=== PATIENT | male | born 1945 | race Caucasian/White ===

== ENCOUNTER 2020-07-14 05:29 | Outpatient (RCR) | payer MEDICARE ==
[~2020-07-14] VITALS: Ht 167.7 cm; Wt 86.4 kg
[~2020-07-14 05:29] MED LIST: ASCO-262 PO; ATOR40TA70 PO; CETI10TA49 PO; CHOL200014 PO; GLIP10TA13 PO; LOSA100T57 PO; METF-399 PO; MULT-1056 PO; ZINC50TA58 PO
[2020-07-16] MEDS ORDERED: ACHD5005 PO (17:01)
[2020-07-16] MEDS ORDERED: CEPH500C PO (17:01)
== END 2020-07-14 16:09 | disposition home or self-care (01) ==
LOC: PREOP 05:29
PROVIDERS: ATTEND Podiatrist Foot & Ankle Surgery
DX: Z01.812 Encounter for preprocedural laboratory examination (principal); M86.172 Other acute osteomyelitis, left ankle and foot; Z20.822 Contact with and (suspected) exposure to COVID-19
CPT/HCPCS: 87635

== ENCOUNTER 2020-07-16 12:50 | Day surgery (SDC) | payer MEDICARE ==
[~2020-07-16] VITALS: Ht 167.7 cm; Wt 86.4 kg
[2020-07-16] VITALS (7 sets, daily range): BP systolic 103–161; BP diastolic 48–84
[2020-07-16] MEDS ORDERED: PROPOFOL INJECTION 50 ML IV ONE ×2 (13:22→16:22)
[2020-07-16] MEDS ORDERED: fentaNYL INJ 100 MCG/2 ML AMP ONE (13:22)
[2020-07-16] MEDS ORDERED: BUPIVACAINE 0.5% 30 ML (SENSORCAINE) VIAL ONE ×2 (13:47→13:48)
[2020-07-16] MEDS ORDERED: LIDOCAINE 1% INJ 20 ML 20 ML VIAL ONE (13:47)
[2020-07-16] MEDS ORDERED: MIDAZOLAM 2 MG/2 ML (VERSED) VIAL ONE (14:07)
[2020-07-16] MEDS ORDERED: VANCOMYCIN INJECTION 1,000 MG in NS (IVPB) 250 ML IV ONE (15:15)
[2020-07-16] MEDS ORDERED: LACTATED RINGERS 1,000 ML IV PRN (15:15)
[2020-07-16] MEDS ORDERED: ONDANSETRON 4 MG/2 ML (SDV) Z0FRAN IVP PRN (15:30)
[2020-07-16] MEDS ORDERED: fentaNYL INJ 100 MCG/2 ML AMP IVP ONE (15:30)
[2020-07-16] MEDS ORDERED: morphine INJ 10 MG/ML 1ML (SYR OR VIAL) IVP ONE (15:30)
[2020-07-16] MEDS ORDERED: MEPERIDINE (DEMEROL) INJ 50 MG/ML IVP ONE (15:30)
[2020-07-16] MEDS ORDERED: ONDANSETRON 4 MG/2 ML (SDV) Z0FRAN ONE (16:22)
--- NOTE | 2020-07-16 16:54 | Progress Note-Pre Operative ---
Pre-Operative Progress Note H&P Reviewed The H&P was reviewed, patient examined and no changes noted. Date Seen by Provider: Jul 16, 2020 Time Seen by Provider: 15:30 Date H&P Reviewed: Jul 16, 2020 Time H&P Reviewed: 15:31 Pre-Operative Diagnosis: Osteomyelitis left hallux CLARENCE GARIBAY DPM Jul 16, 2020 16:54
--- NOTE | 2020-07-16 16:57 | Progress Note-Post Operative ---
Post-Operative Progess Note Surgeon (s)/Desizing Machine Offbearer (s) Surgeon CLARENCE GARIBAY DPM Desizing Machine Offbearer: none Pre-Operative Diagnosis Osteomyelitis left hallux Post-Operative Diagnosis Same Procedure & Operative Findings Date of Procedure 07/16/20 Procedure Performed/Findings Amputation of the left hallux Anesthesia Type MAC Estimated Blood Loss Estimated blood loss (mL): Minimal Specimens/Packing Specimens Removed Left Hallux CLARENCE GARIBAY DPM Jul 16, 2020 16:57
[2020-07-16] MEDS ORDERED: LACTATED RINGERS 1,000 ML IV SCH (17:00)
[2020-07-16] MEDS ORDERED: HYDROcodone/APAP 5 MG/325 MG (LORTAB) TAB PO PRN (17:00)
[2020-07-16] MEDS ORDERED: ACHD5005 PO (17:01)
[2020-07-16] MEDS ORDERED: CEPH500C PO (17:01)
--- NOTE | 2020-07-16 18:19 | Diagnostic Imaging Report ---
Indication: Postop. Findings: There has been resection at the mid shaft of the proximal phalanx of the great toe, no retained opaque foreign body at the level of surgery. There is a midfoot disorganization and flatfoot deformity, presumed Charcot foot. The 2nd through 5th toes are held in flexion, their evaluation limited. 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 Dictated by: Dictated on workstation # [id number]
--- NOTE | 2020-07-16 21:14 | OPERATIVE REPORT ---
DATE OF SERVICE: 07/16/2020 SURGEON: Deepa Garibay DPM. PREOPERATIVE DIAGNOSIS: Osteomyelitis, left hallux. POSTOPERATIVE DIAGNOSIS: Osteomyelitis, left hallux. PROCEDURE: Amputation of left hallux. WOUND CLASS: Contaminated. ANESTHESIA: Monitored anesthesia care. HEMOSTASIS: Pneumatic ankle tourniquet at 250 mmHg. INDICATIONS: This is a 74-year-old male presents with a chronic wound to the left great toe. The patient had an inflammatory reaction and a new ulceration developed on the dorsal aspect of the foot. X-rays were taken, which indicated a significant bone destruction to the interphalangeal joint area of the left hallux. The wound did probe down to bone with the osteolysis of bone. It was clear that this was likely to be bone infection and that surgical excision would be appropriate in the sense that since he has a contracted toe that was unlikely to be resolved with conservative treatment, removing the distal toe would remove the ulceration as well as the infection reducing his risk of continued problems with the left great toe. The patient is willing to proceed with a course of action after risks and complications were discussed at length. DESCRIPTION OF PROCEDURE: The patient was brought back to the operating table, placed in secure supine position. Anesthesia was achieved utilizing 10 mL of 0.5% Marcaine injected in a Plasencia block to the left foot. The left foot had an ankle tourniquet placed over several layers of padding. The left foot was then prepped and draped in normal sterile manner. The left foot was then elevated, allowed to exsanguinate after which the tourniquet was inflated to 250 mmHg. Attention was then directed to the left great toe where 2 incisions were made. The first began at the distal diaphysis of the proximal phalanx and extended dorsally over the interphalangeal joint area and ended at the lateral aspect of the distal diaphysis. The next incision, created a plantar flap where it started at the same starting position extending distally, curving underneath the distal phalanx and curving back to the lateral aspect of the left hallux. The incision was deepened down to bone, after which the mid diaphysis of the proximal phalanx was cut with a power sagittal saw. Good integrity of bone was identified at this time. The distal portion of the left hallux was sent for gross and microscopic evaluation after a small sampling of the bone to the interphalangeal joint area sent for culture and sensitivities. The remainder of the left hallux had no further pathology. The extensor and flexor tendons were identified and cut as proximally as possible. The tourniquet was released, and active bleeders were cauterized. Utilizing 1000 mL power irrigation of normal saline was performed. The wound was then reapproximated with the plantar flap being sutured to the dorsal aspect of the remaining left hallux without any tension. The wound had a swab culture performed prior to closure. Closure was performed with 4-0 Prolene in a simple interrupted type stitch. Postoperative dressing consisted of Betadine soaked Adaptic, sterile 4 x 4, sterile Kerlix all secured with a Coban wrap. The patient tolerated the anesthesia and procedure well, was transported from the operating room to the recovery room with vital signs stable and vascular status intact to the remaining digits of the left foot. The patient is to follow up in my office in 10 days' period of time or sooner if necessary. He was given a prescription for Keflex and also for hydrocodone. Job ID: [id number] DocumentID: [id number] Dictated Date: 07/16/2020 17:07:35 Automobile Mechanic Helper Date: 07/16/2020 21:12:34 Dictated By: DEEPA GARIBAY DPM
== END 2020-07-16 18:30 | disposition home or self-care (01) ==
LOC: SDC 12:50
PROVIDERS: ATTEND Podiatrist Foot & Ankle Surgery
DX: E11.69 Type 2 diabetes mellitus with other specified complication (principal); M86.672 Other chronic osteomyelitis, left ankle and foot; I10 Essential (primary) hypertension; E11.43 Type 2 diabetes mellitus with diabetic autonomic (poly)neuropathy; E78.2 Mixed hyperlipidemia; Z79.84 Long term (current) use of oral hypoglycemic drugs; Z79.899 Other long term (current) drug therapy; Z91.048 Other nonmedicinal substance allergy status
CPT/HCPCS: 73620; 82962; 87070; 87075; 87077; 87081; 87101; 87205

== ENCOUNTER 2021-05-03 12:39 | Outpatient (RCR) | payer MEDICARE ==
[~2021-05-03 12:39] MED LIST changes: +ACHD5005 PO; +CEPH500C PO
[2021-05-11] MEDS ORDERED: IPRA3AMP31 IH (20:47)
[2021-05-11] MEDS ORDERED: COMP1EAC88 MC (20:47)
[2021-05-11] MEDS ORDERED: DEXA6TAB6 PO (20:47)
[2021-05-11] MEDS ORDERED: BENZ100C18 PO (20:47)
[2021-05-11] MEDS ORDERED: ONDA4TAB11 PO (20:47)
[2021-05-11] MEDS ORDERED: oxygen (20:47)
== END 2021-05-16 | disposition home or self-care (01) ==
LOC: ONC 12:39
PROVIDERS: ATTEND Internal Medicine Hematology & Oncology
DX: D72.820 Lymphocytosis (symptomatic) (principal)
CPT/HCPCS: 88184; 88185; G0463; 99214

== ENCOUNTER 2021-05-11 18:00 | Emergency (ER) | payer MEDICARE ==
[~2021-05-11] VITALS: Ht 162 cm; Wt 85.0 kg
--- NOTE | 2021-05-11 18:35 | ED Respiratory ---
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 Reports cough when lying or reclining. Denies covid vaccine and reports he is a smoker. Source: patient Exam Limitations: no limitations History of Present Illness Date Seen by Provider: May 11, 2021 Time Seen by Provider: 18:01 Initial Comments Patient to the ER from home by EMS with chief complaint of shortness of air fever and cough. Fevers been going on for 2 days. Cough and shortness of air is progressively gotten worse over the past week or so. He was recently diagnosed with CLL. He follows with [facility] or primary care. He has not been vaccinated for COVID-19 or influenza. He wishes to be a DNI, DO NOT INTUBATE but wants to be full code. He has a history of hypertension, kry-tzkcslt-oebcdqwai diabetes. He rolls his own cigarettes and smokes about 1/4 pack of cigarettes a day. He denies any lung disorders, reliance on supplemental oxygen or breathing treatments. He received a DuoNeb en route by EMS and thought maybe it helped a little bit. His oxygen saturations were 85% on room air when they arrived. EMS put him on a DuoNeb and brought his oxygen sats up into the upper 90s. Allergies and Home Medications Allergies Coded Allergies: adhesive tape (Verified Allergy, Unknown, 07/13/20) Patient Home Medication List Home Medication List Reviewed: Yes Ascorbate Calcium (Vitamin C) 500 Mg Tablet, 500 MG PO BID, (Reported) Entered as Reported by: RUBY ORDAZ on 07/13/20 1142 Atorvastatin Calcium (Atorvastatin Calcium) 40 Mg Tablet, 40 MG PO DAILY, (Reported) Entered as Reported by: RUBY ORDAZ on 07/13/20 1142 Benzonatate (Tessalon Perles) 100 Mg Capsule, 100 MG PO Q6H PRN for COUGH Prescribed by: SPIKE BONILLA on 05/11/212046 Cephalexin (Cephalexin) 500 Mg Capsule, 1 CAP PO TID Prescribed by: CLARENCE GARIBAY on 07/16/20 170 Cetirizine HCl (Zyrtec) 10 Mg Tablet, 10 MG PO DAILY, (Reported) Entered as Reported by: RUBY ORDAZ on 07/13/20 1142 Cholecalciferol (Vitamin D3) (Vitamin D3) 50 Mcg Tablet, 50 MCG PO DAILY, (Reported) Entered as Reported by: RUBY ORDAZ on 07/13/20 1142 Compressor, For Nebulizer (Pulmo-Aide) 1 Each Each, EACH MC Q4H, (DME) Prescribed by: SPIKE BONILLA on 05/11/212046 Dexamethasone (Decadron) 6 Mg Tablet, 6 MG PO DAILY Prescribed by: SPIKE BONILLA on 05/11/212046 Glipizide (Glipizide) 10 Mg Tablet, 10 MG PO DAILY, (Reported) Entered as Reported by: RUBY ORDAZ on 07/13/20 1142 Hydrocodone/Acetaminophen (Hydrocodone-Acetamin 5-325 mg) 1 Each Tablet, 1 TAB PO Q4H PRN for PAIN-MODERATE (5-7) Prescribed by: CLARENCE GARIBAY on 07/16/20 170 Ipratropium/Albuterol Sulfate (Iprat-Albut 0.5-3(2.5) mg/3 ml) 3 Ml Ampul.neb, 3 ML IH Q4H PRN for SHORTNESS OF BREATH Prescribed by: SPIKE BONILLA on 05/11/212046 Losartan Potassium (Losartan Potassium) 100 Mg Tablet, 100 MG PO DAILY, (Reported) Entered as Reported by: RUBY ORDAZ on 07/13/20 114 Metformin HCl (Metformin HCl) 1,000 Mg Tablet, 1,000 MG PO BID, (Reported) Entered as Reported by: RUBY ORDAZ on 07/13/20 1142 Multivit-Min/FA/Lycopen/Lutein (Men 50 Plus Multivitamin Tab) 1 Each Tablet, 1 EACH PO DAILY, (Reported) Entered as Reported by: RUBY ORDAZ on 07/13/20 1142 Ondansetron (Ondansetron Odt) 4 Mg Tab.rapdis, 4-8 MG PO Q6H PRN for NAUSEA/VOMITING Prescribed by: SPIKE BONILLA on 05/11/212046 Zinc (Zinc) 50 Mg Tablet, 50 MG PO DAILY, (Reported) Entered as Reported by: RUBY ORDAZ on 07/13/20 1142 [oxygen] , 2-6 L NA DAILY PRN PRN for SHORTNESS OF BREATH Prescribed by: SPIKE BONILLA on 05/11/212046 Review of Systems Review of Systems Constitutional: chills; No diaphoresis; fever, malaise EENTM: No ear discharge, No ear pain Respiratory: cough, orthopnea, phlegm, short of breath, wheezing Cardiovascular: No chest pain, No palpitations Gastrointestinal: No abdominal pain, No nausea, No vomiting Genitourinary: No discharge, No dysuria Musculoskeletal: No back pain; joint pain (Chronic foot pain followed by Dr. Garibay) All Other Systems Reviewed Negative Unless Noted: Yes Past Kkoxucp-Wvwfbd-Czjbvu Hx Patient Social History Tobacco Use?: Yes Tobacco type used: Cigarettes Smoking Status: Current Someday Smoker Use of E-Cig and/or Vaping dev: No Seasonal Allergies Seasonal Allergies: Yes Past Medical History Surgeries: Yes (right foot sx x2) Appendectomy, Tonsillectomy Respiratory: No Currently Using CPAP: No Currently Using BIPAP: No Cardiac: Yes High Cholesterol, Hypertension Neurological: No Genitourinary: No Gastrointestinal: No Musculoskeletal: Yes (osteomyelitis) Endocrine: Yes Diabetes, Non-Insulin dep HEENT: No Cancer: No (dentures-upper) Psychosocial: No Integumentary: Yes Blood Disorders: No Physical Exam Vital Signs - First Documented 05/11/21 05/11/21 18:07 18:39 Temp 38.2 Pulse 112 Resp 30 B/P (MAP) 146/116 (126) Pulse Ox 100 O2 Delivery Nasal Cannula O2 Flow Rate 3.00 Capillary Refill : Less Than 3 Seconds Height: '" Weight: lbs. oz. kg; 32.00 BMI Method: General Appearance: WD/WN, moderate distress Eyes: Bilateral Eye Normal Inspection, Bilateral Eye PERRL, Bilateral Eye EOMI HEENT: PERRL/EOMI, normal ENT inspection, TMs normal, pharynx normal Neck: non-tender, full range of motion, supple, normal inspection Respiratory: lungs clear, no accessory muscle use, respiratory distress (Mild to moderate with oxygen saturations in the upper 90s on 4 L by nasal cannula, increased respiratory rate 25 to 30 breaths/min. No retractions.), decreased breath sounds Cardiovascular: normal peripheral pulses, regular rate, rhythm Gastrointestinal: normal bowel sounds, non tender, soft Extremities: non-tender, normal capillary refill Neurologic/Psychiatric: alert, normal mood/affect, oriented x 3 Skin: normal color, warm/dry Focused Exam Lactate Level 05/11/21 18:25: Lactic Acid Level 2.74*H 05/11/21 20:34: Lactic Acid Level 1.81 Lactic Acid Level Laboratory Tests Test 05/11/21 18:25 05/11/21 20:34 Lactic Acid Level 2.74 MMOL/L (0.50-2.00) *H 1.81 MMOL/L (0.50-2.00) Progress/Results/Core Measures Suspected Sepsis SIRS Temperature: Pulse: 112 Respiratory Rate: 30 Laboratory Tests 05/11/21 18:25: White Blood Count 12.0H Blood Pressure 146 /116 Mean: 126 05/11/21 18:25: Lactic Acid Level 2.74*H 05/11/21 20:34: Lactic Acid Level 1.81 Laboratory Tests 05/11/21 18:25: Creatinine 1.72H, INR Comment 1.3, Platelet Count 88L, Total Bilirubin 1.6H Results/Orders Lab Results Laboratory Tests Test 05/11/21 18:15 05/11/21 18:25 05/11/21 18:30 05/11/21 20:00 Range/Units Influenza Type A (RT-PCR) Not Detected Not Detecte Influenza Type B (RT-PCR) Not Detected Not Detecte SARS-CoV-2 RNA (RT-PCR) Detected H Not Detecte White Blood Count 12.0 H 4.3-11.0 10^3/uL Red Blood Count 3.93 L 4.30-5.52 10^6/uL Hemoglobin 13.2 L 13.3-17.7 g/dL Hematocrit 37 L 40-54 % Mean Corpuscular Volume 94 80-99 fL Mean Corpuscular Hemoglobin 34 25-34 pg Mean Corpuscular Hemoglobin Concent 36 32-36 g/dL Red Cell Distribution Width 12.2 10.0-14.5 % Platelet Count 88 L 130-400 10^3/uL Mean Platelet Volume 11.5 9.0-12.2 fL Immature Granulocyte % (Auto) 0 % Neutrophils (%) (Auto) 16 L 42-75 % Lymphocytes (%) (Auto) 81 H 12-44 % Monocytes (%) (Auto) 3 0-12 % Eosinophils (%) (Auto) 0 0-10 % Basophils (%) (Auto) 0 0-10 % Neutrophils # (Auto) 1.9 1.8-7.8 10^3/uL Lymphocytes # (Auto) 9.7 H 1.0-4.0 10^3/uL Monocytes # (Auto) 0.3 0.0-1.0 10^3/uL Eosinophils # (Auto) 0.0 0.0-0.3 10^3/uL Basophils # (Auto) 0.0 0.0-0.1 10^3/uL Immature Granulocyte # (Auto) 0.0 0.0-0.1 10^3/uL Neutrophils % (Manual) 14 % Lymphocytes % (Manual) 84 % Monocytes % (Manual) 2 % Percent Immature Platelet Fraction 5.1 0.0-7.6 % Blood Morphology Comment NORMAL Prothrombin Time 16.3 H 12.2-14.7 SEC INR Comment 1.3 0.8-1.4 Activated Partial Thromboplast Time 35 24-35 SEC D-Dimer 1.31 H 0.00-0.49 UG/ML Sodium Level 130 L 135-145 MMOL/L Potassium Level 4.3 3.6-5.0 MMOL/L Chloride Level 95 L 98-107 MMOL/L Carbon Dioxide Level 17 L 21-32 MMOL/L Anion Gap 18 H 5-14 MMOL/L Blood Urea Nitrogen 33 H 7-18 MG/DL Creatinine 1.72 H 0.60-1.30 MG/DL Estimat Glomerular Filtration Rate 41 BUN/Creatinine Ratio 19 Glucose Level 283 H 70-105 MG/DL Lactic Acid Level 2.74 *H 0.50-2.00 MMOL/L Calcium Level 8.5 8.5-10.1 MG/DL Corrected Calcium 8.7 8.5-10.1 MG/DL Magnesium Level 2.1 1.6-2.4 MG/DL Total Bilirubin 1.6 H 0.1-1.0 MG/DL Aspartate Amino Transf (AST/SGOT) 45 H 5-34 U/L Alanine Aminotransferase (ALT/SGPT) 36 0-55 U/L Alkaline Phosphatase 57 40-136 U/L Troponin I 0.030 H <0.028 NG/ML C-Reactive Protein High Sensitivity 34.44 H 0.00-0.50 MG/DL B-Type Natriuretic Peptide 369.6 H <100.0 PG/ML Total Protein 7.0 6.4-8.2 GM/DL Albumin 3.7 3.2-4.5 GM/DL Procalcitonin 6.31 H <0.10 NG/ML Blood Gas Puncture Site R WRIST Blood Gas Patient Temperature 100.7 Arterial Blood pH 7.44 H 7.37-7.43 Arterial Blood Partial Pressure CO2 25 L 35-45 MMHG Arterial Blood Partial Pressure O2 93 79-93 MMHG Arterial Blood HCO3 17 *L 23-27 MMOL/L Arterial Blood Total CO2 17.4 L 21.0-31.0 MMOL/L Arterial Blood Oxygen Saturation 98 94-100 % Arterial Blood Base Excess -6.5 L -2.5-2.5 MMOL/L Virgilio Test YES-POS Blood Gas Ventilator Setting NO Blood Gas Inspired Oxygen 4 L Urine Color BROWN H Urine Clarity SL CLOUDY Urine pH 5.5 5-9 Urine Specific [place] >=1.030 1.016-1.022 Urine Protein 2+ H NEGATIVE Urine Glucose (UA) NEGATIVE NEGATIVE Urine Ketones 1+ H NEGATIVE Urine Nitrite NEGATIVE NEGATIVE Urine Bilirubin 2+ H NEGATIVE Urine Urobilinogen 0.2 < = 1.0 MG/DL Urine Leukocyte Esterase NEGATIVE NEGATIVE Urine RBC (Auto) 2+ H NEGATIVE Urine RBC 0-2 /HPF Urine WBC 2-5 /HPF Urine Crystals PRESENT H /LPF Urine Amorphous Sediment LARGE KATIA URATES H /LPF Urine Bacteria TRACE /HPF Urine Casts PRESENT /LPF Urine Granular Casts 25-50 H /LPF Urine Mucus NEGATIVE /LPF Urine Culture Indicated CULTURE PENDING Test 05/11/21 20:34 Range/Units Lactic Acid Level 1.81 0.50-2.00 MMOL/L Troponin I 0.034 H <0.028 NG/ML My Orders Orders - SPIKE BONILLA Cbc With Automated Diff (05/11/21 18:24) Comprehensive Metabolic Panel (05/11/21 18:24) Blood Culture (05/11/21 18:24) Sputum Culture (05/11/21 18:24) Urinalysis (05/11/21 18:24) Urine Culture (05/11/21 18:24) Protime With Inr (05/11/21 18:24) Partial Thromboplastin Time (05/11/21 18:24) Chest 1 View, Ap/Pa Only (05/11/21 18:24) Ed Iv/Invasive Line Start (05/11/21 18:24) Ed Iv/Invasive Line Start (05/11/21 18:24) Ekg Tracing (05/11/21 18:24) Troponin I [place] (05/11/21 18:24) Vital Signs Adult Sepsis Patie Q15M (05/11/21 18:24) O2 (05/11/21 18:24) Remove Rings In Anticipation O (05/11/21 18:24) Lactic Acid Analyzer (05/11/21 18:24) Influenza A And B By Pcr (05/11/21 18:24) Covid 19 Inhouse Test (05/11/21 18:24) Bnp [place] (05/11/21 18:24) Procalcitonin (Pct) (05/11/21 18:24) Hs C Reactive Protein (05/11/21 18:24) Fibrin Degradation Products (05/11/21 18:24) Magnesium (05/11/21 18:24) Arterial Blood Gas (05/11/21 18:24) Acetaminophen Tablet (Tylenol Tablet) (05/11/21 18:45) Manual Differential (05/11/21 18:25) Dexamethasone Injection (Decadron Injec (05/11/21 20:15) Troponin I [place] (05/11/21 20:26) General/Regular (05/11/21 Dinner) Rx-Albuterol Inhaler (Rx-Ventolin Hfa In (05/11/21 20:50) Medications Given in ED Current Medications Medications Dose Ordered Sig/Jose Route Start Time Stop Time Status Last Admin Dose Admin Acetaminophen 1,000 mg ONCE ONCE PO 05/11/21 18:45 05/11/21 18:46 DC 05/11/21 18:53 1,000 MG Vital Signs/I&O 05/11/21 05/11/21 05/11/21 18:07 18:39 18:46 Temp 38.2 Pulse 112 112 Resp 30 30 B/P (MAP) 146/116 (126) 126/64 Pulse Ox 100 100 100 O2 Delivery Nasal Cannula Nasal Cannula Nasal Cannula O2 Flow Rate 3.00 2.00 Capillary Refill : Less Than 3 Seconds Blood Pressure Mean: 126 Progress Note #1: Time: 18:37 Progress Note Sepsis criteria by suspicion for pulmonary infection, tachycardia, tachypnea, fever. Tylenol for the fever. We will hold off on antibiotics and fluids until we see his BNP since he is having orthopnea and his Covid and influenza swab. ABG, EKG and troponin. Progress Note #2: Time: 18:52 Progress Note ABG demonstrates significant respiratory alkalosis with good PO2 on 4 L. He is now titrated down to 2 L. He has some metabolic compensation which means is probably been hypoxic for some time. Progress Note #3: Time: 20:29 Progress Note Patient has a marginally elevated troponin not to the level of a non-STEMI. Likely due to the significant hypoxemia demonstrated on ABG on arrival. He is now down to 2 L and satting in the upper 90s. He was brought in on 10 L with 100% O2. We took him off the oxygen and he quickly slipped down to 87% so we restarted it at 6 L by nasal cannula. His wheezing had significantly improved. He was able to speak 3-4 word sentences. Since has been here we gave him some Decadron and he is now able to speak in full sentences and states that he wants to go home. We did offer him an observation stay with cardiology consult and he declined all of this stating he does not want to stay in the hospital. We will set him up with [facility], and called [facility] for an oxygen concentrator. They are to bring in a tank here and need him at his house with a concentrator. He is currently only needing 2 L by nasal cannula. ECG Initial ECG Impression Date: May 11, 2021 Initial ECG Impression Time: 18:41 Initial ECG Rate: 110 Initial ECG Rhythm: S.Tach Initial ECG Intervals: Normal Initial ECG Impression: Normal Comment Sinus tachycardia without clinically relevant ST elevation or depression Diagnostic Imaging Diagonstic Imaging: Xray Plain Films/CT/US/NM/MRI: chest Comments [facility] [place] NAME: KIRTI CHO [facility] REC#: [id number] PT STATUS: REG ER : 1945 PHYSICIAN: SPIKE BONILLA MD ADMIT DATE: 05/11/21/ER Draft Date of Exam:05/11/21 CHEST 1 VIEW, AP/PA ONLY INDICATION: Shortness of breath. EXAMINATION: Chest, 05/11/2021. FINDINGS: The heart is unremarkable. Pulmonary vasculature is normal. Bibasilar infiltrate suspected with mild peripheral infiltrates in the mid lungs. There is no pneumothorax. The heart and pulmonary vasculature appear normal. IMPRESSION: Scattered bilateral infiltrates. Dictated on workstation # [id number] Dict: 05/11/21 1841 Trans: 05/11/21 1844 [facility] [id number] Interpreted by: GERALDINE PARK MD Electronically signed by: Reviewed: Reviewed by Me Departure Impression Primary Impression: COVID-19 Additional Impressions: Acute hypoxemic respiratory failure due to COVID-19 Acute respiratory alkalosis Elevated troponin level not due myocardial infarction Disposition: HOME, SELF-CARE Condition: Stable Departure-Patient Inst. Decision time for Depature: 22:03 Referrals: JOSE BRICE DO (PCP/Family) Primary Care Physician Patient Instructions: COVID-19 Overview Add. Discharge Instructions: As soon as you get home call [facility] at [phone] and they will come to your house with an oxygen concentrator. Decadron 6 mg daily for the next 10 days. Ondansetron 1 to 2 tablets every 6 hours as necessary to control nausea. If you are having wheezing or shortness of breath then use your ProAir inhaler or vial of DuoNeb through your nebulizer every 4 hours as necessary. If it is not controlling your shortness of air and your your oxygen saturations are going below 90% despite the oxygen then you should return to the ER. Take the prescription for the nebulizer to the durable medical equipment supply [facility] the mall and they will fill it for a nebulizer. The medicine for the nebulizer called DuoNeb along with all the other medications is at [facility] pharmacy on [address]. Wear your oxygen between 2 and 6 L/min as necessary to maintain oxygen satur ations above 90% while at rest. Humidifiers and vapor rubs can be helpful. Tessalon Perles 1 capsule every 6 hours as necessary for cough. All discharge instructions reviewed with patient and/or family. Voiced understanding. Scripts Ipratropium/Albuterol Sulfate (Iprat-Albut 0.5-3(2.5) mg/3 ml) 3 Ml Ampul.neb 3 ML IH Q4H PRN for SHORTNESS OF BREATH for 30 Days, #60 EACH 0 Refills Prov: SPIKE BONILLA 05/11/21 Compressor, For Nebulizer (Pulmo-Aide) 1 Each Each EACH MC Q4H for Wheezing, #1 0 Refills Use as directed Prov: SPIKE BONILLA 05/11/21 Benzonatate (TESSALON PERLES) 100 Mg Capsule 100 MG PO Q6H PRN for COUGH, #20 CAP 0 Refills Prov: SPIKE BONILLA 05/11/21 Ondansetron (Ondansetron Odt) 4 Mg Tab.rapdis 4-8 MG PO Q6H PRN for NAUSEA/VOMITING, #20 TAB 0 Refills Prov: SPIKE BONILLA 05/11/21 Dexamethasone (Decadron) 6 Mg Tablet 6 MG PO DAILY for 10 Days, #10 TAB 0 Refills Prov: SPIKE BONILLA 05/11/21 [oxygen] No Conflict Check 2-6 L NA DAILY PRN PRN for SHORTNESS OF BREATH, #1 EACH 0 Refills O2 Conc. 2-6 LPM to keep Spo2 above 90%. Prov: SPIKE BONILLA 05/11/21 SPIKE BONILLA May 11, 2021 18:35
[2021-05-11 18:42] LABS: ABG BASE EXCESS -6.5 MMOL/L (-2.5-2.5); ABG OXYGEN SATURATION 98 % (94-100); ABG PCO2 25 MMHG (35-45); ABG PH 7.44 (7.37-7.43); ABG PO2 93 MMHG (79-93); ABG TCO2 17.4 MMOL/L (21.0-31.0)
[2021-05-11 18:44] LABS: ALLENS TEST YES-POS; INSPIRED O2 4 L; PATIENT TEMP 100.7; VENTILATOR NO
[2021-05-11] MEDS ORDERED: ACETAMINOPHEN 500 MG TAB (TYLENOL) PO ONE (18:45)
--- NOTE | 2021-05-11 18:45 | Diagnostic Imaging Report ---
INDICATION: Shortness of breath. EXAMINATION: Chest, 05/11/2021. FINDINGS: The heart is unremarkable. Pulmonary vasculature is normal. Bibasilar infiltrate suspected with mild peripheral infiltrates in the mid lungs. There is no pneumothorax. The heart and pulmonary vasculature appear normal. IMPRESSION: Scattered bilateral infiltrates. Dictated by: Dictated on workstation # [id number]
[2021-05-11 18:49] LABS: BASOPHILS % (AUTO) 0 % (0-10); EOSINOPHILS % (AUTO) 0 % (0-10); HEMATOCRIT 37 % (40-54); HEMOGLOBIN 13.2 g/dL (13.3-17.7); MEAN CORPUSCULAR HGB CONC 36 g/dL (32-36); MEAN PLATELET VOLUME 11.5 fL (9.0-12.2)
[2021-05-11 18:51] LABS: LYMPHOCYTES # (AUTO) 9.7 10^3/uL (1.0-4.0); LYMPHOCYTES % (AUTO) 81 % (12-44); MEAN CORPUSCULAR HEMOGLOBIN 34 pg (25-34); MEAN CORPUSCULAR VOLUME 94 fL (80-99); MONOCYTES # (AUTO) 0.3 10^3/uL (0.0-1.0); MONOCYTES % (AUTO) 3 % (0-12); NEUTROPHILS # (AUTO) 1.9 10^3/uL (1.8-7.8); NEUTROPHILS % (AUTO) 16 % (42-75); PLATELET COUNT 88 10^3/uL (130-400)
[2021-05-11 19:03] LABS: FIBRIN DEGRADATION PRODUCTS 1.31 UG/ML (0.00-0.49); INR 1.3 (0.8-1.4); PROTHROMBIN TIME PATIENT 16.3 SEC (12.2-14.7)
[2021-05-11 19:11] LABS: ALBUMIN 3.7 GM/DL (3.2-4.5); BILIRUBIN,TOTAL 1.6 MG/DL (0.1-1.0); CALCIUM 8.5 MG/DL (8.5-10.1); CREATININE SERUM 1.72 MG/DL (0.60-1.30); MAGNESIUM 2.1 MG/DL (1.6-2.4); POTASSIUM 4.3 MMOL/L (3.6-5.0)
[2021-05-11 19:25] LABS: LYMPHOCYTES % (MANUAL) 84 %; MONOCYTES % (MANUAL) 2 %; NEUTROPHILS % (MANUAL) 14 %; RBC MORPH NORMAL
[2021-05-11 20:24] LABS: CLARITY,URINE SL CLOUDY; COLOR,URINE BROWN; GLUCOSE, URINE (UA) NEGATIVE (NEGATIVE); KETONES,URINE 1+ (NEGATIVE); LEUKOCYTE ESTERASE ,URINE NEGATIVE (NEGATIVE); NITRITE,URINE NEGATIVE (NEGATIVE); PH,URINE 5.5 (5-9); PROTEIN,URINE 2+ (NEGATIVE)
[2021-05-11 20:39] LABS: BILIRUBIN,URINE 2+ (NEGATIVE)
[2021-05-11 20:40] LABS: GRANULAR CASTS,URINE 25-50 /LPF
[2021-05-11 20:41] LABS: AMORPHOUS SEDIMENT,UR LARGE AMOR URATES /LPF; BACTERIA,URINE TRACE /HPF; RBC,URINE 0-2 /HPF
[2021-05-11] MEDS ORDERED: IPRA3AMP31 IH (20:47)
[2021-05-11] MEDS ORDERED: BENZ100C18 PO (20:47)
[2021-05-11] MEDS ORDERED: DEXA6TAB6 PO (20:47)
[2021-05-11] MEDS ORDERED: COMP1EAC88 MC (20:47)
[2021-05-11] MEDS ORDERED: ONDA4TAB11 PO (20:47)
[2021-05-11] MEDS ORDERED: oxygen (20:47)
[2021-05-11] MEDS ORDERED: RX-ALBUTEROL INHALER 8.5 GM HFA (PROAIR) IH STA (20:50)
[2021-05-11 22:20] VITALS: BP 107/51
== END 2021-05-11 22:21 | disposition home or self-care (01) ==
LOC: EDUNIT# 18:00 → ER 18:02
DX: U07.1 COVID-19 (principal); E87.3 Alkalosis; R79.89 Other specified abnormal findings of blood chemistry; I10 Essential (primary) hypertension; E78.00 Pure hypercholesterolemia, unspecified; E11.9 Type 2 diabetes mellitus without complications; F17.210 Nicotine dependence, cigarettes, uncomplicated; Z79.84 Long term (current) use of oral hypoglycemic drugs; Z79.899 Other long term (current) drug therapy
CPT/HCPCS: 36415; 71045; 80053; 81000; 82805; 83605; 83735; 83880; 84145; 84484; 85007; 85027; 85379; 85610; 85730; 86141; 87040; 87088; 87636; 93005

== ENCOUNTER 2021-05-13 14:54 | Inpatient (IN) | payer MEDICARE ==
[~2021-05-13] VITALS: Ht 160 cm; Wt 102.5 kg
[~2021-05-13 14:54] MED LIST changes: +BENZ100C18 PO; +COMP1EAC88 MC; +DEXA6TAB6 PO; +IPRA3AMP31 IH; +ONDA4TAB11 PO; +oxygen
[2021-05-13 16:03] VITALS: BP 184/99
[2021-05-13] MEDS ORDERED: LACTATED RINGERS 1,000 ML IV STA (16:14)
[2021-05-13 16:23] LABS: BASOPHILS % (AUTO) 0 % (0-10); EOSINOPHILS % (AUTO) 0 % (0-10); HEMATOCRIT 37 % (40-54); LYMPHOCYTES # (AUTO) 24.4 10^3/uL (1.0-4.0); LYMPHOCYTES % (AUTO) 97 % (12-44); MEAN CORPUSCULAR HEMOGLOBIN 34 pg (25-34); MEAN CORPUSCULAR HGB CONC 35 g/dL (32-36); MEAN CORPUSCULAR VOLUME 96 fL (80-99); MEAN PLATELET VOLUME 11.9 fL (9.0-12.2); MONOCYTES # (AUTO) 0.2 10^3/uL (0.0-1.0); MONOCYTES % (AUTO) 1 % (0-12); NEUTROPHILS # (AUTO) 0.5 10^3/uL (1.8-7.8); NEUTROPHILS % (AUTO) 2 % (42-75); PLATELET COUNT 150 10^3/uL (130-400); WHITE BLOOD COUNT 25.1 10^3/uL (4.3-11.0)
[2021-05-13 16:28] LABS: ALBUMIN 3.7 GM/DL (3.2-4.5); POTASSIUM 4.4 MMOL/L (3.6-5.0)
[2021-05-13 16:29] LABS: CALCIUM 8.8 MG/DL (8.5-10.1)
[2021-05-13 16:30] LABS: TOTAL PROTEIN 7.3 GM/DL (6.4-8.2)
--- NOTE | 2021-05-13 16:32 | ED General ---
General Chief Complaint: COVID19 Suspect/Confirmed Stated Complaint: COVID + LOW O2 Nursing Triage Note: PT TO ED FROM HOME. PT TESTED POSITIVE FOR COVID EARLIER THIS WEEK AND WAS SEEN IN THIS ED FOR TREATMENT. PT REPORTS INCREASED DIFFICULTY BREATHING TODAY. Source of Information: Patient, Family, RN/MD Exam Limitations: No Limitations (AURELIANO WEI MD) History of Present Illness Date Seen by Provider: May 13, 2021 Time Seen by Provider: 15:56 Initial Comments Here from clinic by POV with his . Seen in clinic today and found to be hypoxic and quite dyspneic. He is Covid positive. He was seen here 2 days ago for the same and encouraged to stay due to respiratory distress at the time. Patient elected to depart. Went to the clinic today to see if he can get some help with his breathing. His provider Jovany, Dr. Brice, was appropriately quite concerned and encouraged him to come here. He did not want to come by EMS. He is hypoxic and dyspneic at home despite home O2. His is now also Covid positive. He is not vaccinated but she is. He was recently diagnosed with CLL. Also has diabetes, hypertension and hypercholesterol. He is an intermittent smoker. He is adamant that he does not want to be intubated but he is okay with any other resuscitative measures including CPR. When asked, he states that he has had friends who have with intubation and he does not want to do that. Timing/Duration: 4-5 Days, Getting Worse Severity: Severe Associated Systoms: No Chest Pain; Cough, Fever/Chills, Loss of Appetite; No Nausea/Vomiting; Shortness of Air, Weakness (AURELIANO WEI MD) Allergies and Home Medications Allergies Coded Allergies: adhesive tape (Verified Allergy, Unknown, 07/13/20) Patient Home Medication List Home Medication List Reviewed: Yes (AURELIANO WEI MD) Ascorbate Calcium (Vitamin C) 500 Mg Tablet, 500 MG PO BID, (Reported) Entered as Reported by: RUBY ORDAZ on 07/13/20 1142 Atorvastatin Calcium (Atorvastatin Calcium) 40 Mg Tablet, 40 MG PO DAILY, (Reported) Entered as Reported by: RUBY ORDAZ on 07/13/20 1142 Benzonatate (Tessalon Perles) 100 Mg Capsule, 100 MG PO Q6H PRN for COUGH Prescribed by: SPIKE BONILLA on 05/11/212046 Cephalexin (Cephalexin) 500 Mg Capsule, 1 CAP PO TID Prescribed by: CLARENCE GARIBAY on 07/16/201700 Cetirizine HCl (Zyrtec) 10 Mg Tablet, 10 MG PO DAILY, (Reported) Entered as Reported by: RUBY ORDAZ on 07/13/20 114 Cholecalciferol (Vitamin D3) (Vitamin D3) 50 Mcg Tablet, 50 MCG PO DAILY, (Reported) Entered as Reported by: RUBY ORDAZ on 07/13/20 114 Compressor, For Nebulizer (Pulmo-Aide) 1 Each Each, EACH MC Q4H, (DME) Prescribed by: SPIKE BONILLA on 05/11/212046 Dexamethasone (Decadron) 6 Mg Tablet, 6 MG PO DAILY Prescribed by: SPIKE BONILLA on 05/11/212046 Glipizide (Glipizide) 10 Mg Tablet, 10 MG PO DAILY, (Reported) Entered as Reported by: RUBY ORDAZ on 07/13/20 114 Hydrocodone/Acetaminophen (Hydrocodone-Acetamin 5-325 mg) 1 Each Tablet, 1 TAB PO Q4H PRN for PAIN-MODERATE (5-7) Prescribed by: CLARENCE GARIBAY on 07/16/201700 Ipratropium/Albuterol Sulfate (Iprat-Albut 0.5-3(2.5) mg/3 ml) 3 Ml Ampul.neb, 3 ML IH Q4H PRN for SHORTNESS OF BREATH Prescribed by: SPIEK BONILLA on 05/11/212046 Losartan Potassium (Losartan Potassium) 100 Mg Tablet, 100 MG PO DAILY, (Reported) Entered as Reported by: RUBY ORDAZ on 07/13/20 114 Metformin HCl (Metformin HCl) 1,000 Mg Tablet, 1,000 MG PO BID, (Reported) Entered as Reported by: RUBY ORDAZ on 07/13/20 114 Multivit-Min/FA/Lycopen/Lutein (Men 50 Plus Multivitamin Tab) 1 Each Tablet, 1 EACH PO DAILY, (Reported) Entered as Reported by: RUBY ORDAZ on 07/13/20 1142 Ondansetron (Ondansetron Odt) 4 Mg Tab.rapdis, 4-8 MG PO Q6H PRN for NAUSEA/VOMITING Prescribed by: SPIKE BONILLA on 05/11/212046 Zinc (Zinc) 50 Mg Tablet, 50 MG PO DAILY, (Reported) Entered as Reported by: RUBY ORDAZ on 07/13/20 1142 [oxygen] , 2-6 L NA DAILY PRN PRN for SHORTNESS OF BREATH Prescribed by: SPIKE BONILLA on 05/11/212046 Review of Systems Review of Systems Constitutional: see HPI, fever, weakness Respiratory: short of breath, wheezing Cardiovascular: No chest pain, No edema Gastrointestinal: No nausea, No vomiting Musculoskeletal: muscle weakness Skin: No change in color Psychiatric/Neurological: Weakness Review of systems limited due to underlying medical condition critical nature of the patient. (AURELIANO WEI MD) Past Ecvpjvv-Lmbwum-Fhnbgs Hx Patient Social History Tobacco Use?: Yes Tobacco type used: Cigarettes Smoking Status: Current Someday Smoker Substance use?: No Alcohol Use?: No Pt feels they are or have been: No (AURELIANO WEI MD) Seasonal Allergies Seasonal Allergies: Yes (AURELIANO WEI MD) Past Medical History Surgeries: Yes (right foot sx x2) Appendectomy, Tonsillectomy Respiratory: No Currently Using CPAP: No Currently Using BIPAP: No Cardiac: Yes High Cholesterol, Hypertension Neurological: No Genitourinary: No Gastrointestinal: No Musculoskeletal: Yes (osteomyelitis) Endocrine: Yes Diabetes, Non-Insulin dep HEENT: No Cancer: No (dentures-upper) Psychosocial: No Integumentary: Yes Blood Disorders: No (AURELIANO WEI MD) Family Medical History Reviewed Nursing Family Hx (AURELIANO WEI MD) Physical Exam-Suspected Sepsis Physical Exam Vital Signs Vital Signs - First Documented 05/13/21 15:52 Pulse 142 Resp 50 B/P (MAP) 184/99 (127) Pulse Ox 72 O2 Delivery Nasal Cannula O2 Flow Rate 4.00 Capillary Refill : Less Than 3 Seconds Blood Pressure Mean: 127 Height, Weight, BMI Height: '" Weight: lbs. oz. kg; 31.00 BMI Method: General Appearance: WD/WN, Moderate Distress (Respiratory) HEENT: PERRL/EOMI, Other (Mucous membranes dry) Neck: Non Tender, Supple Respiratory: Lungs Clear, Normal Breath Sounds Cardiovascular: No Murmur, Tachycardia Gastrointestinal: Non Tender, Soft Back: Normal Inspection, No CVA Tenderness, No Vertebral Tenderness Extremity: Non Tender, Other (Deformity left foot. This is chronic.) Neurologic/Psychiatric: Alert, Oriented x3 Skin: normal color, warm/dry (AURELIANO WEI MD) Vital Signs Vital Signs - First Documented 05/13/21 15:52 Pulse 142 Resp 50 B/P (MAP) 184/99 (127) Pulse Ox 72 O2 Delivery Nasal Cannula O2 Flow Rate 4.00 (JONN PALMER MD) Focused Exam Lactate Level 05/13/21 15:54: Lactic Acid Level 5.83*H 05/13/21 17:55: Lactic Acid Level 4.23*H (AURELIANO WEI MD) Lactate Level 05/13/21 15:54: Lactic Acid Level 5.83*H 05/13/21 17:55: Lactic Acid Level 4.23*H (JONN PALMER MD) Lactic Acid Level Laboratory Tests Test 05/13/21 15:54 05/13/21 17:55 Lactic Acid Level 5.83 MMOL/L (0.50-2.00) *H 4.23 MMOL/L (0.50-2.00) *H (AURELIANO WEI MD) Lactic Acid Level Laboratory Tests Test 05/13/21 17:55 Lactic Acid Level 4.23 MMOL/L (0.50-2.00) *H (JONN PALMER MD) Progress/Results/Core Measures Suspected Sepsis SIRS Temperature: Pulse: 108 Respiratory Rate: 38 Laboratory Tests 05/13/21 15:54: White Blood Count 25.1H Blood Pressure 184 /99 Mean: 127 05/13/21 15:54: Lactic Acid Level 5.83*H 05/13/21 17:55: Lactic Acid Level 4.23*H Laboratory Tests 05/13/21 15:54: Creatinine 2.31H, INR Comment 1.3, Platelet Count 150, Total Bilirubin 2.0H (AURELIANO WEI MD) SIRS Laboratory Tests 05/13/21 15:54: White Blood Count 25.1H 05/13/21 15:54: Lactic Acid Level 5.83*H 05/13/21 17:55: Lactic Acid Level 4.23*H Laboratory Tests 05/13/21 15:54: Creatinine 2.31H, INR Comment 1.3, Platelet Count 150, Total Bilirubin 2.0H (JONN PALMER MD) Results/Orders Lab Results Laboratory Tests Test 05/13/21 15:54 05/13/21 16:24 05/13/21 17:55 Range/Units White Blood Count 25.1 H 4.3-11.0 10^3/uL Red Blood Count 3.84 L 4.30-5.52 10^6/uL Hemoglobin 13.0 L 13.3-17.7 g/dL Hematocrit 37 L 40-54 % Mean Corpuscular Volume 96 80-99 fL Mean Corpuscular Hemoglobin 34 25-34 pg Mean Corpuscular Hemoglobin Concent 35 32-36 g/dL Red Cell Distribution Width 12.7 10.0-14.5 % Platelet Count 150 130-400 10^3/uL Mean Platelet Volume 11.9 9.0-12.2 fL Immature Granulocyte % (Auto) 0 % Neutrophils (%) (Auto) 2 L 42-75 % Lymphocytes (%) (Auto) 97 H 12-44 % Monocytes (%) (Auto) 1 0-12 % Eosinophils (%) (Auto) 0 0-10 % Basophils (%) (Auto) 0 0-10 % Neutrophils # (Auto) 0.5 L 1.8-7.8 10^3/uL Lymphocytes # (Auto) 24.4 H 1.0-4.0 10^3/uL Monocytes # (Auto) 0.2 0.0-1.0 10^3/uL Eosinophils # (Auto) 0.0 0.0-0.3 10^3/uL Basophils # (Auto) 0.0 0.0-0.1 10^3/uL Immature Granulocyte # (Auto) 0.0 0.0-0.1 10^3/uL Neutrophils % (Manual) 1 % Lymphocytes % (Manual) 98 % Monocytes % (Manual) 1 % Blood Morphology Comment NORMAL Prothrombin Time 16.5 H 12.2-14.7 SEC INR Comment 1.3 0.8-1.4 Activated Partial Thromboplast Time 31 24-35 SEC D-Dimer 3.63 H 0.00-0.49 UG/ML Sodium Level 127 L 135-145 MMOL/L Potassium Level 4.4 3.6-5.0 MMOL/L Chloride Level 91 L 98-107 MMOL/L Carbon Dioxide Level 13 L 21-32 MMOL/L Anion Gap 23 H 5-14 MMOL/L Blood Urea Nitrogen 54 H 7-18 MG/DL Creatinine 2.31 H 0.60-1.30 MG/DL Estimat Glomerular Filtration Rate 29 BUN/Creatinine Ratio 23 Glucose Level 595 *H 70-105 MG/DL Lactic Acid Level 5.83 *H 4.23 *H 0.50-2.00 MMOL/L Calcium Level 8.8 8.5-10.1 MG/DL Corrected Calcium 9.0 8.5-10.1 MG/DL Total Bilirubin 2.0 H 0.1-1.0 MG/DL Aspartate Amino Transf (AST/SGOT) 111 H 5-34 U/L Alanine Aminotransferase (ALT/SGPT) 92 H 0-55 U/L Alkaline Phosphatase 54 40-136 U/L C-Reactive Protein High Sensitivity 39.44 H 0.00-0.50 MG/DL Total Protein 7.3 6.4-8.2 GM/DL Albumin 3.7 3.2-4.5 GM/DL Procalcitonin 28.14 H <0.10 NG/ML Blood Gas Puncture Site RR Blood Gas Patient Temperature 37.6 Arterial Blood pH 7.35 L 7.37-7.43 Arterial Blood Partial Pressure CO2 29 L 35-45 MMHG Arterial Blood Partial Pressure O2 81 79-93 MMHG Arterial Blood HCO3 15 *L 23-27 MMOL/L Arterial Blood Total CO2 16.1 L 21.0-31.0 MMOL/L Arterial Blood Oxygen Saturation 97 94-100 % Arterial Blood Base Excess -9.1 L -2.5-2.5 MMOL/L Virgilio Test YES-POS Blood Gas Ventilator Setting NO Blood Gas Inspired Oxygen 75 My Orders Orders - AURELIANO WEI MD Cbc With Automated Diff (05/13/21 16:14) Comprehensive Metabolic Panel (05/13/21 16:14) Blood Culture (05/13/21 16:14) Sputum Culture (05/13/21 16:14) Protime With Inr (05/13/21 16:14) Partial Thromboplastin Time (05/13/21 16:14) Chest 1 View, Ap/Pa Only (05/13/21 16:14) Ed Iv/Invasive Line Start (05/13/21 16:14) Vital Signs Adult Sepsis Patie Q15M (05/13/21 16:14) O2 (05/13/21 16:14) Remove Rings In Anticipation O (05/13/21 16:14) Lactic Acid Analyzer (05/13/21 16:14) Fibrin Degradation Products (05/13/21 16:14) Procalcitonin (Pct) (05/13/21 16:14) Hs C Reactive Protein (05/13/21 16:14) Arterial Blood Gas (05/13/21 16:14) Lactated Ringers (Lr 1000 Ml Iv Solution (05/13/21 16:14) Dexamethasone Injection (Decadron Inje (05/13/21 16:15) Manual Differential (05/13/21 15:54) Cefepime Injection (Maxipime Injection) (05/13/21 17:30) Cefepime Injection (Maxipime Injection) (05/14/21 06:00) Heparin Injection (Heparin Injection) (05/13/21 17:45) Ed Admission (Communication) (05/13/21 17:38) Lactated Ringers (Lr 1000 Ml Iv Solution (05/13/21 18:00) Medications Given in ED Current Medications Medications Dose Ordered Sig/Jose Route Start Time Stop Time Status Last Admin Dose Admin Cefepime HCl 1000 mg/Sodium Chloride 50 ml @ 100 mls/hr ONCE ONCE IV 05/13/21 17:30 05/13/21 17:59 DC 05/13/21 18:21 100 MLS/HR Lactated Ringer's 1,000 ml @ 100 mls/hr Q10H ONCE IV 05/13/21 18:00 05/14/21 03:59 05/13/21 18:26 100 MLS/HR Vital Signs/I&O 05/13/21 05/13/21 05/13/21 05/13/21 15:52 15:55 15:57 16:03 Pulse 142 108 Resp 50 38 B/P (MAP) 184/99 (127) Pulse Ox 72 74 94 O2 Delivery Nasal Cannula OxyMask Nasal Cannula O2 Flow Rate 4.00 15.00 4.00 100.00 Capillary Refill : Less Than 3 Seconds Blood Pressure Mean: 127 (AURELIANO WEI MD) Lab Results Laboratory Tests Test 05/13/21 15:54 05/13/21 16:24 05/13/21 17:55 Range/Units White Blood Count 25.1 H 4.3-11.0 10^3/uL Red Blood Count 3.84 L 4.30-5.52 10^6/uL Hemoglobin 13.0 L 13.3-17.7 g/dL Hematocrit 37 L 40-54 % Mean Corpuscular Volume 96 80-99 fL Mean Corpuscular Hemoglobin 34 25-34 pg Mean Corpuscular Hemoglobin Concent 35 32-36 g/dL Red Cell Distribution Width 12.7 10.0-14.5 % Platelet Count 150 130-400 10^3/uL Mean Platelet Volume 11.9 9.0-12.2 fL Immature Granulocyte % (Auto) 0 % Neutrophils (%) (Auto) 2 L 42-75 % Lymphocytes (%) (Auto) 97 H 12-44 % Monocytes (%) (Auto) 1 0-12 % Eosinophils (%) (Auto) 0 0-10 % Basophils (%) (Auto) 0 0-10 % Neutrophils # (Auto) 0.5 L 1.8-7.8 10^3/uL Lymphocytes # (Auto) 24.4 H 1.0-4.0 10^3/uL Monocytes # (Auto) 0.2 0.0-1.0 10^3/uL Eosinophils # (Auto) 0.0 0.0-0.3 10^3/uL Basophils # (Auto) 0.0 0.0-0.1 10^3/uL Immature Granulocyte # (Auto) 0.0 0.0-0.1 10^3/uL Neutrophils % (Manual) 1 % Lymphocytes % (Manual) 98 % Monocytes % (Manual) 1 % Blood Morphology Comment NORMAL Prothrombin Time 16.5 H 12.2-14.7 SEC INR Comment 1.3 0.8-1.4 Activated Partial Thromboplast Time 31 24-35 SEC D-Dimer 3.63 H 0.00-0.49 UG/ML Sodium Level 127 L 135-145 MMOL/L Potassium Level 4.4 3.6-5.0 MMOL/L Chloride Level 91 L 98-107 MMOL/L Carbon Dioxide Level 13 L 21-32 MMOL/L Anion Gap 23 H 5-14 MMOL/L Blood Urea Nitrogen 54 H 7-18 MG/DL Creatinine 2.31 H 0.60-1.30 MG/DL Estimat Glomerular Filtration Rate 29 BUN/Creatinine Ratio 23 Glucose Level 595 *H 70-105 MG/DL Lactic Acid Level 5.83 *H 4.23 *H 0.50-2.00 MMOL/L Calcium Level 8.8 8.5-10.1 MG/DL Corrected Calcium 9.0 8.5-10.1 MG/DL Total Bilirubin 2.0 H 0.1-1.0 MG/DL Aspartate Amino Transf (AST/SGOT) 111 H 5-34 U/L Alanine Aminotransferase (ALT/SGPT) 92 H 0-55 U/L Alkaline Phosphatase 54 40-136 U/L C-Reactive Protein High Sensitivity 39.44 H 0.00-0.50 MG/DL Total Protein 7.3 6.4-8.2 GM/DL Albumin 3.7 3.2-4.5 GM/DL Procalcitonin 28.14 H <0.10 NG/ML Blood Gas Puncture Site RR Blood Gas Patient Temperature 37.6 Arterial Blood pH 7.35 L 7.37-7.43 Arterial Blood Partial Pressure CO2 29 L 35-45 MMHG Arterial Blood Partial Pressure O2 81 79-93 MMHG Arterial Blood HCO3 15 *L 23-27 MMOL/L Arterial Blood Total CO2 16.1 L 21.0-31.0 MMOL/L Arterial Blood Oxygen Saturation 97 94-100 % Arterial Blood Base Excess -9.1 L -2.5-2.5 MMOL/L Virgilio Test YES-POS Blood Gas Ventilator Setting NO Blood Gas Inspired Oxygen 75 My Orders Orders - JONN PALMER MD Lorazepam Injection (Ativan Injection) (05/13/21 19:15) Medications Given in ED Current Medications Medications Dose Ordered Sig/Jose Route Start Time Stop Time Status Last Admin Dose Admin Cefepime HCl 1000 mg/Sodium Chloride 50 ml @ 100 mls/hr ONCE ONCE IV 05/13/21 17:30 05/13/21 17:59 DC 05/13/21 18:21 100 MLS/HR Lactated Ringer's 1,000 ml @ 100 mls/hr Q10H ONCE IV 05/13/21 18:00 1/29/22 03:59 05/13/21 18:26 100 MLS/HR Lorazepam 0.25 mg ONCE ONCE IVP 05/13/21 19:15 05/13/21 19:16 DC 05/13/21 19:45 0.25 MG Vital Signs/I&O 05/13/21 05/13/21 05/13/21 05/13/21 15:52 15:55 15:57 16:03 Pulse 142 108 Resp 50 38 B/P (MAP) 184/99 (127) Pulse Ox 72 74 94 O2 Delivery Nasal Cannula OxyMask Nasal Cannula O2 Flow Rate 4.00 15.00 4.00 100.00 (JONN PALMER MD) Progress Note : Progress Note Seen and evaluated. Patient placed on high flow oxygen mask and this improved his oxygen saturation to upper 80s. Sepsis protocol initiated. IV started. We will give LR 1 L bolus. Will monitor patient for improvement on oxygen mask which did not significantly improve above the upper 80s so we elected to move to BiPAP. I rediscussed with the patient regarding intubation and he is very clear that he does not want to be intubated but he is okay with other resuscitative measures. He is okay with BiPAP as well. This was initiated and did show improvement to the lower 90s and up to 94%. ABG ordered. 1635: Patient doing a little better. O2 sat probe changed to the ear which seems to have a little better response and O2 sat 96% on BiPAP at 16/6 and 75%. We will continue this. I did have a long conversation with the patient and his regarding the severity of his current illness and difficulty with treatment. Decadron 6 mg IV ordered and initiated. I did with the patient and his regarding Actemra as a study drug with FDA emergency use authorization. We did discuss risk and benefits and after that discussion they agreed that they would be open to that treatment therapy. Patient will require admission. We are pending labs and x-ray now. Monitor patient. 1725: I did discuss the case with Dr. Harvey. We reviewed current findings and situation including patient status. She accepts patient for admission to the ICU. We currently do not have a bed available so we will hold here until bed becomes available which we think will be later this evening. We will initiate cefepime 1 g IV now and every 12 hours as well as heparin 5000 units subcu every 8 hours. She is asked for me to discuss the case with the eICU which I will do. 1745: I discussed the case with the eICU team sock ironer And reviewed all the current findings and situation. Also reviewed antibiotics and anticoagulation. We will initiate normal saline at 100 mL an hour. Patient does have findings of pneumonia on top of Covid infection and respiratory failure. He does have lactic acid elevation. Patient does have septic shock findings with lactic acid greater than 5. We have given 1 L of LR and are judiciously giving fluids in the setting of Covid. It would be harmful to the patient to aggressively hydrate in the setting of Covid and potential for ARDS with excessive fluids so we will be judicious about this and will not be using the 30 mL/kg bolus typical for sepsis protocol. Currently his blood pressure is 120s systolic. Repeat lactic acid is pending. Family updated and agree to admission. (AURELIANO WEI MD) Progress Note : Time: 19:58 Progress Note Care of this patient has been assumed from Dr. Wei. Patient has been accepted for admission to the ICU but we are awaiting bed availability. In the meantime he is being maintained on BiPAP but he is not compliant with the BiPAP therapy. He is confused and removes the BiPAP. We tried using a Vapotherm which we thought may be better tolerated. He likewise removes the cannula. We tried to relax him with a low-dose of Ativan 0.25 mg which was not effective. I discussed the situation with the eICU provider. We are going to try BiPAP again on Precedex. (JONN PALMER MD) Diagnostic Imaging Diagonstic Imaging: Xray Plain Films/CT/US/NM/MRI: chest Comments [facility]. [place], [place] NAME: KIRTI CHO [facility] REC#: [id number] PT STATUS: REG ER : 1945 PHYSICIAN: AURELIANO WEI MD ADMIT DATE: 05/13/21/ER Signed Date of Exam:05/13/21 CHEST 1 VIEW, AP/PA ONLY INDICATION: COVID positive, hypoxia. TECHNIQUE: Frontal chest obtained at 04:38 p.m. and compared to 05/11/2021. FINDINGS: There is cardiomegaly. There are patchy infiltrates in the right perihilar region and base and in the left upper lobe and base, compatible with pneumonia. These findings have shown significant worsening compared to the prior study. There is no pneumothorax or pleural fluid. Metallic screws are seen overlying the chest which are presumed artifactual. These were not present on the prior study. IMPRESSION: New bilateral infiltrates are present, suspicious for pneumonia. Dictated by: Dictated on workstation # [id number] Dict: 05/13/211649 Trans: 05/13/211658 [id number] Interpreted by: NICO BAILEY MD Electronically signed by: NICO BAILEY MD 05/13/211658 (AURELIANO WEI MD) Critical Care Note Critical Care Start Time: 15:56 Stop Time: 18:10 Total Time (minutes) 60 minutes. Time includes evaluation, treatment, reevaluation, review of labs and data, discussion with family, admitting physician and consulting eICU service. This time excludes separately billable encounters. See progress note for details. (AURELIANO WEI MD) Departure Communication (Admissions) Time/Spoke to Admitting Phy: 17:25 Time/Spoke to Consulting Phy: 17:40 (AURELIANO WEI MD) Impression Primary Impression: Acute hypoxemic respiratory failure due to COVID-19 Additional Impressions: Pneumonia of both lungs Qualified Codes: J18.9 - Pneumonia, unspecified organism Acute respiratory alkalosis COVID-19 Disposition: ADMITTED INPATIENT Condition: Critical Admissions Decision to Admit Reason: Admit from ER (General) Decision to Admit/Date: May 13, 2021 Time/Decision to Admit Time: 17:25 (AURELIANO WEI MD) Departure-Patient Inst. Referrals: JOSE BRICE DO (PCP/Family) Primary Care Physician AURELIANO WEI MD May 13, 2021 16:32 JONN PALMER MD May 13, 2021 20:00
[2021-05-13 16:34] LABS: CREATININE SERUM 2.31 MG/DL (0.60-1.30)
[2021-05-13 16:41] LABS: ABG BASE EXCESS -9.1 MMOL/L (-2.5-2.5); ABG OXYGEN SATURATION 97 % (94-100); ABG PCO2 29 MMHG (35-45); ABG PH 7.35 (7.37-7.43); ABG PO2 81 MMHG (79-93); ABG TCO2 16.1 MMOL/L (21.0-31.0)
[2021-05-13 16:42] LABS: ALLENS TEST YES-POS
[2021-05-13 16:43] LABS: INSPIRED O2 75; PATIENT TEMP 37.6; VENTILATOR NO
--- NOTE | 2021-05-13 16:54 | Diagnostic Imaging Report ---
INDICATION: COVID positive, hypoxia. TECHNIQUE: Frontal chest obtained at 04:38 p.m. and compared to 05/11/2021. FINDINGS: There is cardiomegaly. There are patchy infiltrates in the right perihilar region and base and in the left upper lobe and base, compatible with pneumonia. These findings have shown significant worsening compared to the prior study. There is no pneumothorax or pleural fluid. Metallic screws are seen overlying the chest which are presumed artifactual. These were not present on the prior study. IMPRESSION: New bilateral infiltrates are present, suspicious for pneumonia. Dictated by: Dictated on workstation # [id number]
[2021-05-13 17:07] LABS: FIBRIN DEGRADATION PRODUCTS 3.63 UG/ML (0.00-0.49); INR 1.3 (0.8-1.4); PROTHROMBIN TIME PATIENT 16.5 SEC (12.2-14.7)
[2021-05-13] MEDS ORDERED: CEFEPIME INJECTION 1,000 MG in NS (IVPB) 50 ML IV ONE (17:30)
[2021-05-13 17:41] LABS: LYMPHOCYTES % (MANUAL) 98 %; MONOCYTES % (MANUAL) 1 %; NEUTROPHILS % (MANUAL) 1 %; RBC MORPH NORMAL
[2021-05-13] MEDS ORDERED: LACTATED RINGERS 1,000 ML IV ONE (18:00)
--- NOTE | 2021-05-13 18:07 | Tele-ICU Consult ---
History of Present Illness History of Present Illness Date Seen by Provider: May 13, 2021 Time Seen by Provider: 18:02 Date of Admission Allergies and Home Medications Allergies Coded Allergies: adhesive tape (Verified Allergy, Unknown, 07/13/20) Home Medications Ascorbate Calcium 500 Mg Tablet, 500 MG PO BID, (Reported) Atorvastatin Calcium 40 Mg Tablet, 40 MG PO DAILY, (Reported) Benzonatate 100 Mg Capsule, 100 MG PO Q6H PRN for COUGH Prescribed by: SPIKE BONILLA on 05/11/212046 Cephalexin 500 Mg Capsule, 1 CAP PO TID Prescribed by: CLARENCE GARIBAY on 07/16/201700 Cetirizine HCl 10 Mg Tablet, 10 MG PO DAILY, (Reported) Cholecalciferol (Vitamin D3) 50 Mcg Tablet, 50 MCG PO DAILY, (Reported) Dexamethasone 6 Mg Tablet, 6 MG PO DAILY Prescribed by: SPIKE BONILLA on 05/11/212046 Glipizide 10 Mg Tablet, 10 MG PO DAILY, (Reported) Hydrocodone/Acetaminophen 1 Each Tablet, 1 TAB PO Q4H PRN for PAIN-MODERATE (5- 7) Prescribed by: CLARENCE GARIBAY on 07/16/201700 Ipratropium/Albuterol Sulfate 3 Ml Ampul.neb, 3 ML IH Q4H PRN for SHORTNESS OF BREATH Prescribed by: SPIKE BONILLA on 05/11/212046 Losartan Potassium 100 Mg Tablet, 100 MG PO DAILY, (Reported) Metformin HCl 1,000 Mg Tablet, 1,000 MG PO BID, (Reported) Multivit-Min/FA/Lycopen/Lutein 1 Each Tablet, 1 EACH PO DAILY, (Reported) Ondansetron 4 Mg Tab.rapdis, 4-8 MG PO Q6H PRN for NAUSEA/VOMITING Prescribed by: SPIKE BONILLA on 05/11/212046 Zinc 50 Mg Tablet, 50 MG PO DAILY, (Reported) [oxygen] , 2-6 L NA DAILY PRN PRN for SHORTNESS OF BREATH O2 Conc. 2-6 LPM to keep Spo2 above 90%. Prescribed by: SPIKE BONILLA on 05/11/212046 Past Medical/Social/Family Hx Patient Social History Tobacco Use?: Yes Tobacco type used: Cigarettes Smoking Status: Current Someday Smoker Substance use?: No Alcohol Use?: No Pt stated abuse/neglect: No Current Status Advance Directives: No Communicates: Verbally Primary Language: Tajik Preferred Spoken Language: Tajik Review of Systems Constitutional: see HPI Focused Exam Lactate Level 05/13/21 15:54: Lactic Acid Level 5.83*H Height, Weight, BMI Height: '" Weight: lbs. oz. kg; 31.00 BMI Method: Lactic Acid Level Laboratory Tests Test 05/13/21 15:54 Lactic Acid Level 5.83 MMOL/L (0.50-2.00) *H Exam Exam Patient acknowledged, consented, and participated in this virtual visit which was conducted using real time audio/video Vital Signs Date Time Temp Pulse Resp B/P (MAP) Pulse Ox O2 Delivery O2 Flow Rate FiO2 05/13/21 16:03 108 38 94 100.00 05/13/21 15:57 Nasal Cannula 4.00 05/13/21 15:55 74 OxyMask 15.00 05/13/21 15:52 142 50 184/99 (127) 72 Nasal Cannula 4.00 Height & Weight Height: '" Weight: lbs. oz. kg; 31.00 BMI Method: General Appearance: WD/WN, Moderate Distress (Respiratory), Other HEENT: PERRL/EOMI, Other (Mucous membranes dry) Neck: Non Tender, Supple Respiratory: Lungs Clear, Normal Breath Sounds Cardiovascular: No Murmur, Tachycardia Capillary Refill: Less Than 3 Seconds Extremity: Non Tender, Other (Deformity left foot. This is chronic.) Neurologic/Psychiatric: Alert, Oriented x3 Results Lab Laboratory Tests 05/13/21 15:54 Assessment/Plan Assessment/Plan TELE-ICU note in ER hold setting Patient in need of ICU care, but currently is on hold in ER since there is no ICU beds available. Tele-ICU is providing complimentary help with ICU expertise to ER / PCP / CCM physicians while patient in ER location. Endorsement received from ER MD Labs reviewed; images reviewed Hopital course 06/11 - was in ER - dx with COVIS , started on steroids , went home AMA 05/13 - sent to ER from clinic with severe hypoxia --> BIPAP , vitals stable A/P AHRF / ARDS due to severe COVID19 - BIPAP / - tolerates well - cont to wean down o2 -prone position if able - conservative fluid strategy [id number]-4/COVID-19 PNA ( DX 05/11 unvaccinted , + too) --Dexamethasone 05/13 -Hypercoagulable state , thrombotic microangiopathy, DDIMER= 3.6 on 05/13 -> lovenox ppx dose , follow D dimer - if rising to change to full dose . Can not do CTA or VQ now Superimposed bact PNA on right -empiric abx started on 05/13 Hyperglycemia / Diabetes Mellitus - ISS , close f/up on steroids Lactic acidosis - due to severe prolonged hypoxia ( not represents sepsis severity - follow MARGAUX/ on CKD - gentle hydration , received 1 L LR in ER transaminitis likely due to COVID-19 Recently dx with CLL PER ER MD CONVERSATIONS TODAY AND 05/11 - DNI, BUT OK WITH OTHER MEASURES INCLUDING CPR Bedside admitting physician and consultants on case to be updated by bedside RN. Future plans depend on the clinical course and tests results, and as delineated by bedside physicians. PLEASE , reach out if any questions or concerns (we cannot fully and completely monitor patient in ER settings, hopefully will have a bed in ICU soon NADYA WRIGHT MD May 13, 2021 18:07
[2021-05-13] MEDS ORDERED: LORazepam INJ 2 MG/ML (ATIVAN) VIAL IVP ONE (19:15)
[2021-05-13] MEDS ORDERED: DexMEDEtomidine 250 ML DRIP 250 ML IV ONE (20:35)
[2021-05-13] MEDS ORDERED: NS IV 1000 ML 1,000 ML IV SCH ×4 (20:45→22:45)
[2021-05-13] MEDS ORDERED: inSUlin ASPART (NovoLOG) 1 UNIT/0.01 ML (CHARGE PER UNIT) SC SCH (21:00)
[2021-05-13] MEDS ORDERED: LORazepam INJ 2 MG/ML (ATIVAN) VIAL ONE (21:34)
[2021-05-13] MEDS ORDERED: ONDANSETRON 4 MG (ZOFRAN) ORAL DISSOLVE TAB PO PRN (22:30)
[2021-05-13] MEDS ORDERED: inSUlin (REGULAR) HUMAN 1 UNIT/0.01 ML (CHARGE PER UNIT) IV ONE (22:30)
[2021-05-13] MEDS ORDERED: diphenhydrAMINE 25 MG TAB (BENADRYL) PO PRN (22:30)
[2021-05-13] MEDS ORDERED: LACTULOSE SYRUP 10GM/15ML (ENULOSE) 30ML UDC PO PRN (22:30)
[2021-05-13] MEDS ORDERED: BISACODYL 10 MG SUPP (DULCOLAX) PR PRN (22:30)
[2021-05-13] MEDS ORDERED: CALCIUM CARBONATE 500 MG (TUMS) TAB.CHEW PO PRN (22:30)
[2021-05-13] MEDS ORDERED: ACETAMINOPHEN 325 MG TABLET PO PRN (22:30)
[2021-05-13] MEDS ORDERED: DEXTROSE 50% 50 ML (IMS) SYR IV PRN ×2 (22:30)
[2021-05-13] MEDS ORDERED: ONDANSETRON 4 MG/2 ML (SDV) Z0FRAN IV PRN (22:30)
[2021-05-13] MEDS ORDERED: diphenhydrAMINE 50 MG/ML INJ (BENADRYL) IVP PRN (22:30)
[2021-05-13] MEDS ORDERED: ANTACID SUSP 30 ML UDC (MYLANTA) PO PRN (22:30)
[2021-05-13] MEDS ORDERED: polyethylene glycoL POWDER 17 GM (MIRALAX) PACK PO PRN (22:30)
[2021-05-13] MEDS ORDERED: MILK OF MAGNESIA 400 MG/5 ML 30 ML UDC PO PRN (22:30)
[2021-05-13] MEDS ORDERED: MELATONIN 3 MG TABLET PO PRN (22:30)
[2021-05-13] MEDS ORDERED: HYDROmorphone 2 MG/ML VIAL (DILAUDID) IVP PRN (22:30)
[2021-05-13 22:35] VITALS: BP 76/29
[2021-05-13] MEDS ORDERED: NOREPINEPHRINE 8 MG/250 ML 250 ML IV ONE (22:43)
[2021-05-13] MEDS: NOREPINEPHRINE 8 MG/250 ML 250 ML IV SCH (22:45)
[2021-05-13 22:53] LABS: ABG BASE EXCESS -8.2 MMOL/L (-2.5-2.5); ABG OXYGEN SATURATION 52 % (94-100); ABG PCO2 42 MMHG (35-45); ABG PO2 40 MMHG (79-93)
[2021-05-13 22:54] LABS: ABG PH 7.25 (7.37-7.43); INSPIRED O2 100%; PATIENT TEMP 99.2; VENTILATOR NO
[2021-05-13 23:28] LABS: CREATININE SERUM 2.8 MG/DL (0.60-1.30); POTASSIUM 4.8 MMOL/L (3.6-5.0)
[2021-05-13] MEDS ORDERED: VANCOMYCIN INJECTION 1,000 MG in NS (IVPB) 250 ML IV ONE (23:30)
[2021-05-13] MEDS ORDERED: RT-ALBUTEROL HFA 8.5 GM INHALER IH PRN (23:30)
[2021-05-14] MEDS ORDERED: VANCOMYCIN 1500 MG/NS 500 ML IVPB IV ONE ×2 (00:15)
[2021-05-14 00:19] LABS: ABG BASE EXCESS -9.2 MMOL/L (-2.5-2.5); ABG OXYGEN SATURATION 94 % (94-100); ABG PCO2 34 MMHG (35-45); ABG PO2 79 MMHG (79-93); ABG TCO2 16.9 MMOL/L (21.0-31.0); ALLENS TEST ARTLINE
[2021-05-14 00:20] LABS: INSPIRED O2 100%; PATIENT TEMP 37; VENTILATOR NO
[2021-05-14 00:20] LABS: BILIRUBIN,URINE 1+ (NEGATIVE); CLARITY,URINE CLEAR; COLOR,URINE YELLOW; GLUCOSE, URINE (UA) 3+ (NEGATIVE); KETONES,URINE NEGATIVE (NEGATIVE); LEUKOCYTE ESTERASE ,URINE NEGATIVE (NEGATIVE); NITRITE,URINE NEGATIVE (NEGATIVE); PH,URINE 5.5 (5-9); PROTEIN,URINE 2+ (NEGATIVE)
[2021-05-14 00:38] LABS: AMORPHOUS SEDIMENT,UR LARGE AMOR URATES /LPF; BACTERIA,URINE MODERATE /HPF; GRANULAR CASTS,URINE 0-2 /LPF
[2021-05-14] MEDS ORDERED: NS IV 500 ML 500 ML ONE (00:42)
[2021-05-14] MEDS: DexMEDEtomidine 250 ML DRIP 250 ML IV SCH ×4 (00:43→22:17)
[2021-05-14] MEDS: PANTOPRAZOLE 40 MG (PROTONIX) VIAL IV SCH ×2 (00:45→08:13)
[2021-05-14] MEDS ORDERED: inSUlin (REGULAR) HUMAN 1 UNIT/0.01 ML (CHARGE PER UNIT) ONE (00:51)
[2021-05-14] MEDS ORDERED: D5 1/2 NS 1000 ML IV SOLUTION 1,000 ML IV ONE (01:00)
[2021-05-14] MEDS ORDERED: 1/2 NS IV SOLUTION 1,000 ML IV ONE (01:00)
[2021-05-14 01:21] LABS: CALCIUM 8.4 MG/DL (8.5-10.1)
[2021-05-14] MEDS: 1/2 NS IV SOLUTION 1,000 ML IV SCH ×6 (01:23→22:30)
[2021-05-14 01:25] LABS: CREATININE SERUM 2.7 MG/DL (0.60-1.30); PHOSPHORUS 4.4 MG/DL (2.3-4.7)
[2021-05-14 02:40] LABS: POTASSIUM 4.2 MMOL/L (3.6-5.0)
[2021-05-14 02:41] LABS: CALCIUM 8.1 MG/DL (8.5-10.1)
[2021-05-14 02:45] LABS: CREATININE SERUM 2.56 MG/DL (0.60-1.30)
[2021-05-14 02:50] VITALS: BP 99/68
[2021-05-14] MEDS: NOREPINEPHRINE 8 MG/250 ML 250 ML IV SCH ×3 (04:44→20:00)
[2021-05-14 05:03] LABS: ABG BASE EXCESS -7.3 MMOL/L (-2.5-2.5); ABG OXYGEN SATURATION 96 % (94-100); ABG PCO2 29 MMHG (35-45); ABG PH 7.38 (7.37-7.43); ABG PO2 82 MMHG (79-93); ABG TCO2 17.7 MMOL/L (21.0-31.0)
[2021-05-14 05:06] LABS: ALLENS TEST ARTLINE; INSPIRED O2 100%; PATIENT TEMP 37.1; VENTILATOR NO
[2021-05-14 05:07] LABS: BASOPHILS # (AUTO) 0.1 10^3/uL (0.0-0.1); BASOPHILS % (AUTO) 0 % (0-10); EOSINOPHILS % (AUTO) 0 % (0-10); HEMATOCRIT 32 % (40-54); HEMOGLOBIN 11.6 g/dL (13.3-17.7); LYMPHOCYTES # (AUTO) 39.8 10^3/uL (1.0-4.0); LYMPHOCYTES % (AUTO) 97 % (12-44); MEAN CORPUSCULAR HEMOGLOBIN 33 pg (25-34); MEAN CORPUSCULAR HGB CONC 36 g/dL (32-36); MEAN CORPUSCULAR VOLUME 92 fL (80-99); MEAN PLATELET VOLUME 11.9 fL (9.0-12.2); MONOCYTES # (AUTO) 0.4 10^3/uL (0.0-1.0); MONOCYTES % (AUTO) 1 % (0-12); NEUTROPHILS # (AUTO) 0.6 10^3/uL (1.8-7.8); NEUTROPHILS % (AUTO) 1 % (42-75); PLATELET COUNT 174 10^3/uL (130-400)
[2021-05-14 05:26] LABS: POTASSIUM 4.1 MMOL/L (3.6-5.0)
[2021-05-14 05:27] LABS: CALCIUM 8.1 MG/DL (8.5-10.1)
[2021-05-14 05:30] LABS: BILIRUBIN,TOTAL 1.1 MG/DL (0.1-1.0)
[2021-05-14 05:31] LABS: WHITE BLOOD COUNT 40.8 10^3/uL (4.3-11.0)
[2021-05-14 05:32] LABS: CREATININE SERUM 2.33 MG/DL (0.60-1.30)
--- NOTE | 2021-05-14 05:40 | History & Physical-Hospitalist ---
History of Present Illness HPI/Chief Complaint CC: Acute respiratory distress HPI: This is a 75yoWM w/h/o COPD who presents to the ER for the second day in a row for dyspnea after he refused to be admitted last time. COVID dx and he was sent home with O2. He came back worsened and he made it clear he did not want to be intubated so that order was placed in chart. Patient is tachypneic at 50/min on biPAP and remains on sedation of Precedex. Poor prognosis predicted. Source: RN/MD, old records Exam Limitations: clinical condition (bipap and sedation) Date Seen 05/14/21 Time Seen by a Provider: 11:00 Attending Physician Jarrell Coelho MD PCP Michelet Pereira DO Referring Physician Date of Admission May 13, 2021 at 17:39 Home Medications & Allergies Home Medications Reviewed patient Home Medication Reconciliation performed by pharmacy medication reconciliations gyroscope technician and/or nursing. Patients Allergies have been reviewed. Allergies Allergies Coded Allergies adhesive tape (Verified Allergy, Unknown, 07/13/20) Past Fxmgcpk-Stxbtk-Ugrnns Hx Patient Social History Marrital Status: Employed/Student: retired Tobacco Use?: Yes Tobacco type used: Cigarettes Smoking Status: Current Someday Smoker Substance use?: No Alcohol Use?: No Pt feels they are or have been: Unable to obtain Seasonal Allergies Seasonal Allergies: Yes Current Status Advance Directives: Unable to obtain Communicates: Verbally Primary Language: Honduran Preferred Spoken Language: Honduran Past Medical History Surgeries: Appendectomy, Tonsillectomy Currently Using CPAP: No Currently Using BIPAP: No High Cholesterol, Hypertension Diabetes, Non-Insulin dep Blood Disorders: No Family Medical History Reviewed Nursing Family Hx Review of Systems ROS-Unable to Obtain: bipap Constitutional: see HPI Physical Exam Physical Exam Vital Signs Vital Signs - First Documented 05/13/21 05/13/21 05/13/21 15:52 19:35 22:30 Temp 39.0 Pulse 142 Resp 50 B/P (MAP) 184/99 (127) Pulse Ox 72 O2 Delivery Nasal Cannula O2 Flow Rate 4.00 FiO2 100 Capillary Refill : Less Than 3 Seconds Height, Weight, BMI Height: '" Weight: lbs. oz. kg; 33.20 BMI Method: General Appearance: Anxious, Chronically ill, Obese Respiratory: Accessory Muscle Use, Decreased Breath Sounds Cardiovascular: Regular Rate, Rhythm Results Results/Procedures Labs Laboratory Tests 05/13/21 15:54 05/13/21 23:00 05/14/21 01:01 05/14/21 02:20 05/14/21 04:55 05/14/21 09:25 05/14/21 15:07 05/14/21 22:55 05/15/21 04:03 Patient resulted labs reviewed. Assessment/Plan Admission Diagnosis Assessment: Acute hypoxic respiratory failure on biPAP COVID-19 PNA Bacterial PNA with PCT 28 MARGAUX HTN Leukocytosis DVT PPX Heparin Plan: BiPAP DNI Poor prognosis Admission Status: Inpatient Order (span 2 midnights) Reason for Inpatient Admission: resp failure MELVIN TADEO DO May 14, 2021 05:40
[2021-05-14] MEDS ORDERED: inSUlin (REGULAR) HUMAN 1 UNIT/0.01 ML (CHARGE PER UNIT) IV ONE (06:00)
[2021-05-14] MEDS: POTASSIUM CL 10MEQ/50ML IVPB 50 ML IV SCH (06:01)
[2021-05-14] MEDS: KCL 20 MEQ TAB (K-DUR) PO SCH (06:01)
[2021-05-14] MEDS: MAGNESIUM 1 GM/100 ML IVPB 100 ML IV SCH (06:01)
[2021-05-14] MEDS: CEFEPIME INJECTION 1,000 MG in NS (IVPB) 50 ML IV SCH ×3 (06:37→20:37)
[2021-05-14 06:45] LABS: ANISOCYTOSIS SLIGHT; BURR CELLS SLIGHT; LYMPHOCYTES % (MANUAL) 1 %; NEUTROPHILS % (MANUAL) 99 %
[2021-05-14 07:32] VITALS: BP 104/71
[2021-05-14] MEDS: SENNOSIDES 8.6 MG (SENOKOT) TAB PO SCH ×2 (08:14→20:37)
[2021-05-14] MEDS: guaiFENesin (MUCINEX) 600 MG TAB PO SCH ×2 (08:14→20:37)
[2021-05-14] MEDS: DOCUSATE SODIUM 100 MG (COLACE) CAP PO SCH ×2 (08:14→20:37)
--- NOTE | 2021-05-14 08:55 | Tele-ICU Progress Note ---
Progress Note video rounds completed 75 y/o male with CLL and unvacinatted for COvid who is now Covid positive On BIPAP Currently DNR On cefipime and vanc for secondary PNA PLAN: continue full supportive care Focused Exam Lactate Level 05/13/21 23:00: Lactic Acid Level 4.32*H 05/14/21 02:20: Lactic Acid Level 3.59*H 05/14/21 04:55: Lactic Acid Level 3.58*H Height, Weight, BMI Height: '" Weight: lbs. oz. kg; 33.20 BMI Method: Lactic Acid Level Laboratory Tests Test 05/14/21 04:55 Lactic Acid Level 3.58 MMOL/L (0.50-2.00) *H Labs Laboratory Tests 05/13/21 15:54 05/13/21 23:00 05/14/21 01:01 05/14/21 02:20 05/14/21 04:55 Results/Procedures Labs Laboratory Tests 05/13/21 15:54 05/13/21 23:00 05/14/21 01:01 05/14/21 02:20 05/14/21 04:55 Patient resulted labs reviewed. ADARSH PARR MD May 14, 2021 08:55
[2021-05-14] MEDS ORDERED: CEFEPIME INJECTION 2,000 MG in NS (IVPB) 50 ML IV SCH (09:00)
[2021-05-14 09:57] LABS: CALCIUM 7.9 MG/DL (8.5-10.1); CREATININE SERUM 2.44 MG/DL (0.60-1.30); POTASSIUM 4.4 MMOL/L (3.6-5.0)
[2021-05-14 10:10] VITALS: BP 145/89
[2021-05-14] MEDS: RT-ALBUTEROL HFA 8.5 GM INHALER IH SCH ×4 (10:15→21:35)
[2021-05-14] MEDS: D5 1/2 NS 1000 ML IV SOLUTION 1,000 ML IV SCH ×3 (14:17→22:16)
[2021-05-14 14:58] VITALS: BP 119/68
[2021-05-14 15:39] LABS: CALCIUM 7.5 MG/DL (8.5-10.1); CREATININE SERUM 2.49 MG/DL (0.60-1.30)
[2021-05-14 19:00] VITALS: BP 86/56
[2021-05-14 21:35] VITALS: BP 100/60
[2021-05-14 23:26] LABS: CALCIUM 7.1 MG/DL (8.5-10.1); CREATININE SERUM 2.43 MG/DL (0.60-1.30); POTASSIUM 4.9 MMOL/L (3.6-5.0)
[2021-05-15] MEDS: 1/2 NS IV SOLUTION 1,000 ML IV SCH ×6 (01:55→20:21)
[2021-05-15] MEDS ORDERED: ACETAMINOPHEN 650 MG SUPP (TYLENOL) ONE (02:01)
[2021-05-15] MEDS: NOREPINEPHRINE 8 MG/250 ML 250 ML IV SCH ×3 (02:02→16:13)
[2021-05-15] MEDS: ACETAMINOPHEN 650 MG SUPP (TYLENOL) PR PRN ×2 (02:03→06:35)
[2021-05-15 02:52] VITALS: BP 100/60
[2021-05-15] MEDS: RT-ALBUTEROL HFA 8.5 GM INHALER IH SCH ×4 (02:52→21:27)
[2021-05-15] MEDS: D5 1/2 NS 1000 ML IV SOLUTION 1,000 ML IV SCH ×5 (03:43→20:14)
[2021-05-15 04:16] LABS: EOSINOPHILS % (AUTO) 0 % (0-10); MEAN CORPUSCULAR VOLUME 96 fL (80-99); MONOCYTES % (AUTO) 1 % (0-12)
[2021-05-15 04:17] LABS: ABG BASE EXCESS -9.8 MMOL/L (-2.5-2.5); ABG OXYGEN SATURATION 96 % (94-100); ABG PCO2 56 MMHG (35-45); ABG PO2 121 MMHG (79-93); ABG TCO2 18.4 MMOL/L (21.0-31.0)
[2021-05-15 04:18] LABS: ALLENS TEST ARTLINE; BASOPHILS # (AUTO) 0.1 10^3/uL (0.0-0.1); BASOPHILS % (AUTO) 0 % (0-10); HEMATOCRIT 30 % (40-54); HEMOGLOBIN 10.2 g/dL (13.3-17.7); LYMPHOCYTES # (AUTO) 34.9 10^3/uL (1.0-4.0); LYMPHOCYTES % (AUTO) 89 % (12-44); MEAN CORPUSCULAR HEMOGLOBIN 33 pg (25-34); MEAN CORPUSCULAR HGB CONC 34 g/dL (32-36); MEAN PLATELET VOLUME 11.8 fL (9.0-12.2); MONOCYTES # (AUTO) 0.4 10^3/uL (0.0-1.0); NEUTROPHILS % (AUTO) 10 % (42-75); PLATELET COUNT 127 10^3/uL (130-400)
[2021-05-15 04:19] LABS: INSPIRED O2 100%; VENTILATOR NO
[2021-05-15 04:20] LABS: WHITE BLOOD COUNT 39.4 10^3/uL (4.3-11.0)
[2021-05-15 04:21] LABS: ABG PH 7.14 (7.37-7.43); PATIENT TEMP 41.2
[2021-05-15 04:48] LABS: ALBUMIN 2.5 GM/DL (3.2-4.5); BILIRUBIN,TOTAL 0.8 MG/DL (0.1-1.0); CALCIUM 6.9 MG/DL (8.5-10.1); CREATININE SERUM 2.78 MG/DL (0.60-1.30); MAGNESIUM 1.9 MG/DL (1.6-2.4); PHOSPHORUS 3.3 MG/DL (2.3-4.7); POTASSIUM 4.8 MMOL/L (3.6-5.0)
--- NOTE | 2021-05-15 05:32 | Progress Note ---
Standard Progress Note Progress Notes/Assess & Plan Date Seen by a Provider: May 15, 2021 Time Seen by a Provider: 05:31 Progress/Assessment & Plan ABG 7.14/56/121, pt is in resp distress on BiPAP 29/11, pt is DNI, FiO2 100%, will leave on BiPAP settings Focused Exam Lactate Level 05/14/21 02:20: Lactic Acid Level 3.59*H 05/14/21 04:55: Lactic Acid Level 3.58*H 05/15/21 04:15: Lactic Acid Level 1.09 Lactic Acid Level Laboratory Tests Test 05/15/21 04:15 Lactic Acid Level 1.09 MMOL/L (0.50-2.00) ADARSH GRIFFITHS MD May 15, 2021 05:32
[2021-05-15] MEDS: DexMEDEtomidine 250 ML DRIP 250 ML IV SCH ×2 (06:13→14:58)
[2021-05-15] MEDS: POTASSIUM CL 10MEQ/50ML IVPB 50 ML IV SCH (06:14)
[2021-05-15] MEDS: KCL 20 MEQ TAB (K-DUR) PO SCH (06:14)
[2021-05-15] MEDS: MAGNESIUM 1 GM/100 ML IVPB 100 ML IV SCH (06:14)
--- NOTE | 2021-05-15 06:43 | Progress Note - Hospitalist ---
Subjective HPI/CC On Admission Date Seen by Provider: May 15, 2021 Time Seen by Provider: 11:00 CC: Acute respiratory distress HPI: This is a 75yoWM w/h/o COPD who presents to the ER for the second day in a row for dyspnea after he refused to be admitted last time. COVID dx and he was sent home with O2. He came back worsened and he made it clear he did not want to be intubated so that order was placed in chart. Patient is tachypneic at 50/min on biPAP and remains on sedation of Precedex. Poor prognosis predicted. Subjective/Events-last exam Patient about the same BiPAP dependent Precedex maintained Patient appears to be mottling a bit in his extremities Noted ABG continues to be acidotic Patient has very poor prognosis I attempted to call Jennyfer 4 times and went straight to voicemail Focused Exam Lactate Level 05/14/21 02:20: Lactic Acid Level 3.59*H 05/14/21 04:55: Lactic Acid Level 3.58*H 05/15/21 04:15: Lactic Acid Level 1.09 Lactic Acid Level Objective Exam Vital Signs Vital Signs Date Time Temp Pulse Resp B/P (MAP) Pulse Ox O2 Delivery O2 Flow Rate FiO2 05/16/21 05:00 37.4 73 36 91 NIV Bilevel 40.00 05/14/21 00:22 100 Capillary Refill : Less Than 3 Seconds General Appearance: Chronically ill, Obese, Other (Sedated and tachypneic) Respiratory: Accessory Muscle Use, Decreased Breath Sounds Cardiovascular: Regular Rate, Rhythm Results/Procedures Lab Laboratory Tests 05/15/21 16:30 05/16/21 02:50 Patient resulted labs reviewed. Assessment/Plan Assessment and Plan Assess & Plan/Chief Complaint Assessment: Acute hypoxic respiratory failure biPAP dependent COVID-19 PNA Bacterial PNA with PCT 28 MARGAUX HTN Leukocytosis DVT PPX Heparin Plan: BiPAP DNI Poor prognosis 05/15/2021: Continue aggressive treatment Prognosis poor MELVIN TADEO DO May 15, 2021 06:43
[2021-05-15 07:28] VITALS: BP 114/58
[2021-05-15] MEDS: PANTOPRAZOLE 40 MG (PROTONIX) VIAL IV SCH (08:10)
[2021-05-15] MEDS: CEFEPIME INJECTION 1,000 MG in NS (IVPB) 50 ML IV SCH ×2 (08:10→21:12)
[2021-05-15] MEDS: SENNOSIDES 8.6 MG (SENOKOT) TAB PO SCH ×2 (08:10→21:12)
[2021-05-15] MEDS: DOCUSATE SODIUM 100 MG (COLACE) CAP PO SCH ×2 (08:10→21:12)
[2021-05-15] MEDS: guaiFENesin (MUCINEX) 600 MG TAB PO SCH ×2 (08:11→21:12)
--- NOTE | 2021-05-15 10:22 | Tele-ICU Progress Note ---
Subjective Date Seen by a Provider: May 15, 2021 Time Seen by a Provider: 09:05 Subjective/Events-last exam This virtual visit was conducted using real time audio/video. Thank you for asking us to see this patient for respiratory insufficiency due to Covid pna, bacterial pna. Recent events: Temp 41.4, PAF. PE: Tachypneic. O2 sat 99% on BiPAP 166. 100%. HEENT: No obvious masses, adenopathy or JVD. Chest: coarse, diminished on auscultation. CV: RRR S1 S2 No murmur or added sounds. Abd: Non-tender. Bowel sounds Y. : Unremarkable. [place] Y. SINGER BACK TENDER/psychiatric: Grossly intact. No obvious focal findings. Extremities: 1-2+ edema. Capillary refill < 3 seconds. Skin: unremarkable. Results: Elevated WCC 39.4, BUN 69, Creat 2.78, BG 167, D-dimer 3.63. Decreased Hb 10.2. B.14/56/121. CXR: B infilts. Available chart/ vitals / labs / images reviewed. Video assessment done using teleICU camera, rest of exam as per RN. A/P: Respiratory insufficiency: Continue present management with Bipap, increase iPAP to 20. Cont alb., Precedex. Monitor for increasing oxygenation needs and/or need for intubation. Critical Care: critically ill patient. Cont. Cefip., Vanco., Dex., PPI, Levo., Insulin infusion, heparin. Discussed with MANUEL Tinajero. Asked RN to reach out to eICU if any questions or concerns later. Time spent with patient/coordination of care with other health professionals (mins): 30 Sepsis Event Evaluation Height, Weight, BMI Height: '" Weight: lbs. oz. kg; 33.20 BMI Method: Focused Exam Lactate Level 05/14/21 02:20: Lactic Acid Level 3.59*H 05/14/21 04:55: Lactic Acid Level 3.58*H 05/15/21 04:15: Lactic Acid Level 1.09 Exam Exam Patient acknowledged, consented, and participated in this virtual visit which was conducted using real time audio/video Vital Signs Date Time Temp Pulse Resp B/P (MAP) Pulse Ox O2 Delivery O2 Flow Rate FiO2 05/15/21 09:00 39.3 71 40 97 NIV Bilevel 100.00 05/15/21 08:31 106/55 05/15/21 08:00 39.7 69 46 96 NIV Bilevel 100.00 05/15/21 08:00 38.6 05/15/21 07:28 72 48 99 95.00 05/15/21 07:05 40.0 05/15/21 07:00 40.1 74 46 99 NIV Bilevel 100.00 05/15/21 07:00 75 05/15/21 06:35 40.5 05/15/21 06:13 74 05/15/21 06:00 40.7 74 50 98 NIV Bilevel 100.00 05/15/21 05:00 41.0 76 50 97 NIV Bilevel 100.00 05/15/21 04:00 NIV Bilevel 100.00 05/15/21 04:00 41.2 77 44 97 NIV Bilevel 100.00 05/15/21 03:37 41.3 05/15/21 03:00 41.5 83 46 97 NIV Bilevel 100.00 05/15/21 02:52 88 54 98 100.00 05/15/21 02:03 40.7 05/15/21 02:02 112 144/60 05/15/21 02:00 86 31 97 NIV Bilevel 100.00 05/15/21 01:00 81 31 99 NIV Bilevel 100.00 05/15/21 01:00 81 05/15/21 00:00 82 52 100 NIV Bilevel 100.00 05/15/21 00:00 NIV Bilevel 100.00 05/15/21 00:00 37.8 05/14/21 23:00 84 49 99 NIV Bilevel 100.00 05/14/21 22:17 87 129/72 05/14/21 22:00 86 54 99 NIV Bilevel 100.00 05/14/21 21:35 84 50 99 100.00 05/14/21 21:00 80 49 99 NIV Bilevel 100.00 05/14/21 20:00 36.6 05/14/21 20:00 NIV Bilevel 100.00 05/14/21 20:00 76 95/50 05/14/21 20:00 76 48 96 NIV Bilevel 100.00 05/14/21 19:00 80 05/14/21 19:00 80 49 98 NIV Bilevel 100.00 05/14/21 19:00 80 47 99 100.00 05/14/21 18:00 80 33 96 NIV Bilevel 100.00 05/14/21 17:00 82 51 98 NIV Bilevel 100.00 05/14/21 16:45 NIV Bilevel 100.00 05/14/21 16:00 80 47 92 NIV Bilevel 100.00 05/14/21 15:00 82 49 96 NIV Bilevel 100.00 05/14/21 14:58 81 45 93 100.00 05/14/21 14:18 89 145/89 05/14/21 14:17 89 145/89 05/14/21 14:00 77 35 NIV Bilevel 100.00 05/14/21 13:00 89 39 93 NIV Bilevel 100.00 05/14/21 12:56 97 05/14/21 12:20 NIV Bilevel 100.00 05/14/21 12:00 37.4 05/14/21 12:00 92 42 93 NIV Bilevel 100.00 05/14/21 11:00 90 45 92 NIV Bilevel 100.00 I & O 05/15/21 07:00 Intake Total 3000 ml Output Total 810 ml Balance 2190 ml Height & Weight Height: '" Weight: lbs. oz. kg; 33.20 BMI Method: General Appearance: Anxious, Chronically ill, Obese HEENT: PERRL/EOMI, Other (Mucous membranes dry) Neck: Non Tender, Supple Respiratory: Accessory Muscle Use, Decreased Breath Sounds Cardiovascular: Regular Rate, Rhythm Capillary Refill: Less Than 3 Seconds Extremity: Non Tender, Other (Deformity left foot. This is chronic.) Neurologic/Psychiatric: Alert, Oriented x3 Results Lab Laboratory Tests 05/13/21 15:54 05/13/21 23:00 05/14/21 01:01 05/14/21 02:20 05/14/21 04:55 05/14/21 09:25 05/14/21 15:07 05/14/21 22:55 05/15/21 04:03 Assessment/Plan Assessment/Plan See free text. Critical Care: Critically Ill Patient HEIDE HOLT MD May 15, 2021 10:22
--- NOTE | 2021-05-15 10:36 | Procedure/Intervention Note ---
Procedures/Interventions Lumen: triple Central Line Procedure: betadine prep, sterile drapes applied, sterile dressing applied Position: femoral (R) Anesthesia: Lidocaine Volume Anesthetic (ccs): 5 Complications: none Post Position: sutured, good blood return Called ICU by oracle data warehouse developer to start central line due to hypotension with blood pressure in the 50s systolic. Order given by eICU as well as for arterial line Progress Also did a sterile technique ultrasound-guided arterial line placement. This was to the right radial artery 22-gauge art line. No complication. Virgilio's test positive. SUPRIYA MITCHELL PUNCH BOX TENDER May 15, 2021 10:36
[2021-05-15 11:17] VITALS: BP 125/58
[2021-05-15] MEDS ORDERED: NS IV 1000 ML 1,000 ML IV SCH (14:45)
[2021-05-15] MEDS ORDERED: FUROSEMIDE 40 MG/4 ML INJ (LASIX) IVP NR (14:45)
[2021-05-15 15:52] VITALS: BP 136/67
[2021-05-15 17:05] LABS: CALCIUM 6.2 MG/DL (8.5-10.1); CREATININE SERUM 3.13 MG/DL (0.60-1.30); POTASSIUM 4.8 MMOL/L (3.6-5.0)
[2021-05-15 21:27] VITALS: BP 136/67
[2021-05-16] MEDS ORDERED: VANCOMYCIN 1250 MG/NS 250 ML IVPB IV SCH ×2 (01:00)
[2021-05-16] MEDS: 1/2 NS IV SOLUTION 1,000 ML IV SCH ×5 (01:00→16:58)
[2021-05-16] MEDS: D5 1/2 NS 1000 ML IV SOLUTION 1,000 ML IV SCH ×2 (01:41→06:07)
[2021-05-16] MEDS: RT-ALBUTEROL HFA 8.5 GM INHALER IH SCH ×3 (02:40→16:58)
[2021-05-16 02:41] VITALS: BP 90/51
[2021-05-16 03:07] LABS: ABG BASE EXCESS -15.1 MMOL/L (-2.5-2.5); ABG OXYGEN SATURATION 95 % (94-100); ABG PCO2 22 MMHG (35-45); ABG PO2 79 MMHG (79-93); ABG TCO2 10.9 MMOL/L (21.0-31.0)
[2021-05-16 03:09] LABS: ALLENS TEST ARTLINE; INSPIRED O2 100%; VENTILATOR NO
[2021-05-16 03:10] LABS: PATIENT TEMP 37.4
[2021-05-16 03:11] LABS: BASOPHILS # (AUTO) 0.1 10^3/uL (0.0-0.1); BASOPHILS % (AUTO) 0 % (0-10); EOSINOPHILS % (AUTO) 0 % (0-10); HEMATOCRIT 28 % (40-54); HEMOGLOBIN 9.7 g/dL (13.3-17.7); LYMPHOCYTES # (AUTO) 21.2 10^3/uL (1.0-4.0); LYMPHOCYTES % (AUTO) 80 % (12-44); MEAN CORPUSCULAR HEMOGLOBIN 33 pg (25-34); MEAN CORPUSCULAR HGB CONC 35 g/dL (32-36); MEAN CORPUSCULAR VOLUME 93 fL (80-99); MEAN PLATELET VOLUME 12.7 fL (9.0-12.2); MONOCYTES # (AUTO) 0.1 10^3/uL (0.0-1.0); MONOCYTES % (AUTO) 0 % (0-12); NEUTROPHILS % (AUTO) 19 % (42-75); PLATELET COUNT 79 10^3/uL (130-400); WHITE BLOOD COUNT 26.6 10^3/uL (4.3-11.0)
[2021-05-16 03:33] LABS: ALBUMIN 2.2 GM/DL (3.2-4.5); CALCIUM 6.3 MG/DL (8.5-10.1); CREATININE SERUM 3.17 MG/DL (0.60-1.30); MAGNESIUM 1.8 MG/DL (1.6-2.4); PHOSPHORUS 5.1 MG/DL (2.3-4.7); TOTAL PROTEIN 4.7 GM/DL (6.4-8.2)
[2021-05-16] MEDS: POTASSIUM CL 10MEQ/50ML IVPB 50 ML IV SCH (03:35)
[2021-05-16] MEDS: MAGNESIUM 1 GM/100 ML IVPB 100 ML IV SCH (03:35)
[2021-05-16] MEDS: KCL 20 MEQ TAB (K-DUR) PO SCH (03:36)
[2021-05-16] MEDS ORDERED: SODIUM BICARB 8.4% 50 MEQ/50 ML (ABBOTT) SYR ONE (03:46)
[2021-05-16] MEDS: DexMEDEtomidine 250 ML DRIP 250 ML IV SCH (06:08)
[2021-05-16 07:18] VITALS: BP 112/61
[2021-05-16] MEDS: CEFEPIME INJECTION 1,000 MG in NS (IVPB) 50 ML IV SCH (08:02)
[2021-05-16] MEDS: PANTOPRAZOLE 40 MG (PROTONIX) VIAL IV SCH (08:03)
[2021-05-16] MEDS: guaiFENesin (MUCINEX) 600 MG TAB PO SCH (08:23)
[2021-05-16] MEDS: DOCUSATE SODIUM 100 MG (COLACE) CAP PO SCH (08:23)
[2021-05-16] MEDS: SENNOSIDES 8.6 MG (SENOKOT) TAB PO SCH (08:23)
--- NOTE | 2021-05-16 09:36 | Progress Note ---
Subjective Subjective/Events-last exam Febrile, requiring bipap at 100% FiO2, only moaning and not clearly responding to stimulation. Still on precedex, but if stopped, pulls off bipap. Focused Exam Lactate Level 05/14/21 02:20: Lactic Acid Level 3.59*H 05/14/21 04:55: Lactic Acid Level 3.58*H 05/15/21 04:15: Lactic Acid Level 1.09 Objective Exam Last Set of Vital Signs Vital Signs Date Time Temp Pulse Resp B/P (MAP) Pulse Ox O2 Delivery O2 Flow Rate FiO2 05/16/21 09:00 37.7 73 23 93 NIV Bilevel 45.00 05/14/21 00:22 100 Capillary Refill : Less Than 3 Seconds I&O Intake and Output 05/16/21 00:00 Intake Total 6200 ml Output Total 1380 ml Balance 4820 ml Intake Oral 0 ml IV Total 6200 ml Output Urine Total 1380 ml General: Moderate Distress Lungs: Other (ronchi) Heart: Regular Rate, No Murmurs Abdomen: Normal Bowel Sounds, Soft Extremities: Other (bilateral chronic foot deformities) Psych/Mental Status: Other (moaning without meaningful response) Results/Procedures Lab Laboratory Tests 05/15/21 10:21: Glucometer 121H 05/15/21 11:21: Glucometer 107 05/15/21 12:13: Glucometer 106 05/15/21 13:07: Glucometer 110 05/15/21 14:12: Glucometer 96 05/15/21 15:09: Glucometer 114H 05/15/21 16:11: Glucometer 124H 05/15/21 16:30: Sodium Level 130L, Potassium Level 4.8, Chloride Level 107, Carbon Dioxide Level 10L, Anion Gap 13, Blood Urea Nitrogen 70H, Creatinine 3.13H, Estimat Glomerular Filtration Rate 20, BUN/Creatinine Ratio 22, Glucose Level 193H, Calcium Level 6.2L 05/15/21 17:16: Glucometer 137H 05/15/21 19:01: Glucometer 159H 05/15/21 20:08: Glucometer 174H 05/15/21 21:09: Glucometer 208H 05/15/21 22:07: Glucometer 287H 05/15/21 22:51: Glucometer 257H 05/15/21 23:54: Glucometer 203H 05/16/21 00:58: Glucometer 245H 05/16/21 02:05: Glucometer 250H 05/16/21 02:49: Glucometer 270H 05/16/21 02:50: White Blood Count 26.6H, Red Blood Count 2.96L, Hemoglobin 9.7L, Hematocrit 28L, Mean Corpuscular Volume 93, Mean Corpuscular Hemoglobin 33, Mean Corpuscular Hemoglobin Concent 35, Red Cell Distribution Width 13.6, Platelet Count 79L, Mean Platelet Volume 12.7H, Immature Granulocyte % (Auto) 1, Neutrophils (%) (Auto) 19L, Lymphocytes (%) (Auto) 80H, Monocytes (%) (Auto) 0, Eosinophils (%) (Auto) 0, Basophils (%) (Auto) 0, Neutrophils # (Auto) 5.0, Lymphocytes # (Auto) 21.2H, Monocytes # (Auto) 0.1, Eosinophils # (Auto) 0.0, Basophils # (Auto) 0.1, Immature Granulocyte # (Auto) 0.2H, Blood Gas Puncture Site ARTLINE, Blood Gas Patient Temperature 37.4, Arterial Blood pH 7.30*L, Arterial Blood Partial Pressure CO2 22L, Arterial Blood Partial Pressure O2 79, Arterial Blood HCO3 10*L, Arterial Blood Total CO2 10.9L, Arterial Blood Oxygen Saturation 95, Arterial Blood Base Excess -15.1L, Virgilio Test ARTLINE, Blood Gas Ventilator Setting NO, Blood Gas Inspired Oxygen 100%, Sodium Level 129L, Potassium Level 4.0, Chloride Level 107, Carbon Dioxide Level 8*L, Anion Gap 14, Blood Urea Nitrogen 74H, Creatinine 3.17H, Estimat Glomerular Filtration Rate 20, BUN/Creatinine Ratio 23, Glucose Level 295H, Calcium Level 6.3L, Corrected Calcium 7.7L, Phosphorus Level 5.1H, Magnesium Level 1.8, Total Bilirubin 1.0, Aspartate Amino Transf (AST/SGOT) 88H, Alanine Aminotransferase (ALT/SGPT) 60H, Alkaline Phosphatase 50, Total Protein 4.7L, Albumin 2.2L, Beta-Hydroxybutyrate (Chem panel) 0.07 05/16/21 03:51: Glucometer 163H 05/16/21 04:56: Glucometer 163H 05/16/21 06:02: Glucometer 225H 05/16/21 06:54: Glucometer 173H 05/16/21 08:06: Glucometer 182H Microbiology 05/13/21 Urine Culture - Final, Complete NO GROWTH 05/13/21 Blood Culture - Preliminary, Resulted Streptococcus pneumoniae Testing In Progress Assessment/Plan Assessment/Plan (1) COVID-19 Status: Acute Assessment & Plan: Unknown onset, states he was acting somewhat under the weather starting about a week ago. On dexamethasone. (2) CLL (chronic lymphocytic leukemia) Status: Chronic Assessment & Plan: Recently diagnosed, per plan was monitoring. (3) DKA (diabetic ketoacidosis) Status: Resolved Assessment & Plan: Severely elevated glucose with high AG and beta hydroxybutyrate early in admission, on insulin drip. Qualifiers: Qualified Codes: E11.10 - Type 2 diabetes mellitus with ketoacidosis without coma (4) Diabetes mellitus Status: Chronic Assessment & Plan: Reportedly recently well controlled with an A1c below 5, but high blood sugars in the last week or so. Qualifiers: (5) Lactic acidosis Status: Resolved Assessment & Plan: Secondary to hypoxia and sepsis. (6) Septic shock Status: Acute Assessment & Plan: Suspect secondary to combination of bacterial pneumonia and COVID19, requiring norepinephrine. (7) Acute kidney insufficiency Status: Acute Assessment & Plan: Secondary to above, improved slightly then worsened again. (8) Bacterial pneumonia Status: Acute Assessment & Plan: Started on cefepime and vancomycin, blood cultures now with strep pneumo. (9) Acute hypoxemic respiratory failure due to COVID-19 Status: Acute Assessment & Plan: On bipap at 100% FiO2 this am, he does not want intubated, and confirms. (10) DVT prophylaxis Status: Acute Assessment & Plan: Heparin (11) Goals of care, counseling/discussion Status: Acute Assessment & Plan: Discussed with all the above and his worsening respiratory status in light of his desire to not be intubated, and now minimally responsive and appearing to be uncomfortable, discussed option of comfort care and she does agree this would be best for him. Discussed his hospital course to date and process of comfort care. at bedside with used car renovator and nurse, answered questions and initiated comfort care orders. YUE VASQUEZ MD May 16, 2021 09:36
--- NOTE | 2021-05-16 10:25 | Tele-ICU Progress Note ---
Subjective Date Seen by a Provider: May 16, 2021 Time Seen by a Provider: 10:25 Sepsis Event Evaluation Height, Weight, BMI Height: '" Weight: lbs. oz. kg; 33.20 BMI Method: Focused Exam Lactate Level 05/14/21 02:20: Lactic Acid Level 3.59*H 05/14/21 04:55: Lactic Acid Level 3.58*H 05/15/21 04:15: Lactic Acid Level 1.09 Exam Exam Patient acknowledged, consented, and participated in this virtual visit which was conducted using real time audio/video Vital Signs Date Time Temp Pulse Resp B/P (MAP) Pulse Ox O2 Delivery O2 Flow Rate FiO2 05/16/21 10:00 37.8 73 45 97 NIV Bilevel 45.00 05/16/21 09:00 37.7 73 23 93 NIV Bilevel 45.00 05/16/21 08:24 NIV Bilevel 45.00 05/16/21 08:00 37.6 73 46 98 NIV Bilevel 45.00 05/16/21 07:59 73 05/16/21 07:23 NIV Bilevel 45.00 05/16/21 07:18 73 41 88 45.00 05/16/21 07:00 37.5 73 27 95 NIV Bilevel 40.00 05/16/21 06:08 73 115/76 05/16/21 06:00 37.4 73 15 88 NIV Bilevel 40.00 05/16/21 05:00 37.4 73 36 91 NIV Bilevel 40.00 05/16/21 04:00 37.3 73 27 97 NIV Bilevel 40.00 05/16/21 03:55 NIV Bilevel 40.00 05/16/21 03:55 37.3 NIV Bilevel 40.00 05/16/21 03:00 37.4 72 37 99 NIV Bilevel 40.00 05/16/21 02:41 71 41 100 35.00 05/16/21 02:00 37.4 72 96 NIV Bilevel 40.00 05/16/21 01:40 NIV Bilevel 40.00 05/16/21 01:01 NIV Bilevel 45.00 05/16/21 01:00 37.4 72 35 91 NIV Bilevel 35.00 05/16/21 01:00 72 05/16/21 00:00 NIV Bilevel 35.00 05/16/21 00:00 37.5 72 35 93 NIV Bilevel 35.00 05/15/21 23:00 37.5 73 22 96 NIV Bilevel 30.00 05/15/21 22:08 NIV Bilevel 30.00 05/15/21 22:00 37.5 73 22 100 NIV Bilevel 35.00 05/15/21 21:27 71 40 100 35.00 05/15/21 21:07 NIV Bilevel 35.00 05/15/21 21:00 37.4 74 22 100 NIV Bilevel 45.00 05/15/21 20:00 37.3 74 32 100 NIV Bilevel 45.00 05/15/21 20:00 NIV Bilevel 45.00 05/15/21 20:00 37.3 74 22 100 NIV Bilevel 45.00 05/15/21 19:00 37.2 73 17 100 NIV Bilevel 45.00 05/15/21 19:00 73 05/15/21 18:29 100 NIV Bilevel 45.00 05/15/21 18:00 37.0 73 30 100 NIV Bilevel 50.00 05/15/21 17:00 36.9 73 24 100 NIV Bilevel 50.00 05/15/21 16:27 100 NIV Bilevel 50.00 05/15/21 16:18 100 NIV Bilevel 50.00 05/15/21 16:13 138/63 05/15/21 16:00 37.0 72 19 99 NIV Bilevel 75.00 05/15/21 15:52 71 35 100 55.00 05/15/21 15:21 37.3 72 28 99 NIV Bilevel 75.00 05/15/21 14:58 127/58 05/15/21 14:00 37.4 73 31 100 NIV Bilevel 75.00 05/15/21 13:00 37.6 72 29 100 NIV Bilevel 75.00 05/15/21 12:49 73 05/15/21 12:19 100 NIV Bilevel 75.00 05/15/21 12:15 NIV Bilevel 75.00 05/15/21 12:00 37.9 73 37 100 NIV Bilevel 100.00 05/15/21 11:17 71 38 100 75.00 05/15/21 11:00 38.3 71 41 100 NIV Bilevel 100.00 I & O 05/16/21 07:00 Intake Total 7212.5 ml Output Total 1395 ml Balance 5817.5 ml Height & Weight Height: '" Weight: lbs. oz. kg; 33.20 BMI Method: General Appearance: Chronically ill, Obese, Other (Sedated and tachypneic) HEENT: PERRL/EOMI, Other (Mucous membranes dry) Neck: Non Tender, Supple Respiratory: Accessory Muscle Use, Decreased Breath Sounds Cardiovascular: Regular Rate, Rhythm Capillary Refill: Less Than 3 Seconds Extremity: Non Tender, Other (Deformity left foot. This is chronic.) Neurologic/Psychiatric: Alert, Oriented x3 Results Lab Laboratory Tests 05/14/21 15:07 05/14/21 22:55 05/15/21 04:03 05/15/21 16:30 05/16/21 02:50 Assessment/Plan Assessment/Plan (Tele-ICU Physician , Progress Note ) Available chart/ vitals / labs / Images reviewed Video assessment done using teleICU camera, rest of exam as per RN Discussed with RN , EXAM PER RN Events overnight : Afebrile Hopital course 06/11 - was in ER - dx with COVIS , started on steroids , went home AMA 05/13 - sent to ER from clinic with severe hypoxia --> BIPAP , vitals stable 05/13 - BiPAP 16/ 6. 100%. pressors started 05/16 - bipap 20/8 A/P AHRF / ARDS due to severe COVID19 - BIPAP 20/8 50 % - rr 40 , TCV 750 - MV 29L -- need precedex 1-1.0 -prone position if able - conservative fluid strategy SKFP-Pdpeebaelal-3/COVID-19 PNA ( DX 05/11 unvaccinted , + too) --Dexamethasone 05/13 -Hypercoagulable state , thrombotic microangiopathy, DDIMER= 3.6 on 05/13 -> lovenox ppx dose , follow D dimer - if rising to change to full dose . Can not do CTA or VQ now Superimposed bact PNA on right -empiric abx started on 05/13 Shock - resumed septic / ? cardiogenic - on/off levo DM II - insulin gtt MARGAUX/ on CKD - gentle hydration transaminitis likely due to COVID-19 Recently dx with CLL Prognosis poor with MOF Lines : L femoral (Central Line Necessity Reviewed) [place]: OG: Nutrition: Analgesia: Anxiety/ delirium VTE Prophylaxis: hep sq Stress Ulcer Prophylaxis: ppi Plans in collaboration with bedside consultants and IM MDs. Discussed with RN to reach out if any questions or concerns A total of 32 minutes of critical care time was devoted to this patient today, required to treat and/or prevent further deterioration of critical care conditi on ( as above ) . NADYA WRIGHT MD May 16, 2021 10:25
[2021-05-16 10:47] VITALS: BP 85/69
[2021-05-16] MEDS ORDERED: ACETAMINOPHEN 650 MG SUPP (TYLENOL) PR PRN (11:00)
[2021-05-16] MEDS ORDERED: BISACODYL 10 MG SUPP (DULCOLAX) PR PRN (11:00)
[2021-05-16] MEDS ORDERED: ONDANSETRON 4 MG/2 ML (SDV) Z0FRAN IVP PRN (11:00)
[2021-05-16] MEDS ORDERED: PROMETHAZINE INJ 25 MG/ML (PHENERGAN) AMP IVP PRN (11:00)
[2021-05-16] MEDS ORDERED: RT-ALBUTEROL/IPRATROPIUM 3 ML (DUONEB) VIAL INH PRN (11:00)
[2021-05-16] MEDS ORDERED: GLYCOPYRROLATE 0.2 MG/ML (ROBINUL) 2 ML VIAL IV PRN (11:00)
[2021-05-16] MEDS ORDERED: ARTIFICAL TEARS 0.4 ML UNIT DOSE (REFRESH PLUS) OU PRN (11:00)
[2021-05-16] MEDS ORDERED: SALIVA STIMULANT MOUTH SPRAY (BIOTENE) 1.5 OZ MM PRN (11:00)
[2021-05-16] MEDS: LORazepam INJ 2 MG/ML (ATIVAN) VIAL IVP PRN ×2 (11:43→13:39)
[2021-05-16] MEDS: morphine INJ 4 MG/ML 1 ML (VIAL/SYRINGE) IV PRN ×2 (11:44→13:39)
[2021-05-18] MEDS ORDERED: TROUGH ORDER-PHARMACY XX NR
--- NOTE | 2021-05-18 12:05 | Discharge Summary ---
Discharge Summary Date of Admission May 13, 2021 at 17:39 Date of Discharge May 16, 2021 at 17:15 Admission Diagnosis Acute hypoxic respiratory failure on biPAP COVID-19 PNA Bacterial PNA with PCT 28 MARGAUX HTN Leukocytosis Comfort Measures/ End of Life Care: Comfort Measures Date of : May 16, 2021 Time of : 14:30 Discharge Diagnosis (1) COVID-19 Status: Acute (2) Acute hypoxemic respiratory failure due to COVID-19 Status: Acute (3) Diabetes mellitus Status: Chronic Qualifiers: (4) Bacterial pneumonia Status: Acute (5) Acute kidney insufficiency Status: Acute (6) CLL (chronic lymphocytic leukemia) Status: Chronic (7) DKA (diabetic ketoacidosis) Status: Resolved Qualifiers: Qualified Codes: E11.10 - Type 2 diabetes mellitus with ketoacidosis without coma (8) Septic shock Status: Acute (9) Lactic acidosis Status: Resolved YUE VASQUEZ MD May 18, 2021 12:05
== END 2021-05-16 17:15 | disposition expired | DRG 871 ==
LOC: EDUNIT# 14:54 → ER 14:55 → ICU 17:39 → ER 22:12
PROVIDERS: ADMIT Emergency Medicine; ATTEND Family Medicine
PROC: 5A09457 Assistance with Respiratory Ventilation, 24-96 Consecutive Hours, Continuous Positive Airway Pressure (ICD-10-PCS; principal; 2021-05-13)
PROC: 5A0935A Assistance with Respiratory Ventilation, Less than 24 Consecutive Hours, High Flow/Velocity Cannula (ICD-10-PCS; 2021-05-13)
DX: A41.9 Sepsis, unspecified organism (principal); U07.1 COVID-19; E11.10 Type 2 diabetes mellitus with ketoacidosis without coma; R65.21 Severe sepsis with septic shock; J96.01 Acute respiratory failure with hypoxia; J15.9 Unspecified bacterial pneumonia; N17.9 Acute kidney failure, unspecified; C91.10 Chronic lymphocytic leukemia of B-cell type not having achieved remission; Z79.84 Long term (current) use of oral hypoglycemic drugs; I12.9 Hypertensive chronic kidney disease with stage 1 through stage 4 chronic kidney disease, or unspecified chronic kidney disease; E11.22 Type 2 diabetes mellitus with diabetic chronic kidney disease; N18.9 Chronic kidney disease, unspecified; E78.00 Pure hypercholesterolemia, unspecified; R74.01 Elevation of levels of liver transaminase levels; F17.210 Nicotine dependence, cigarettes, uncomplicated; Z51.5 Encounter for palliative care; Z66 Do not resuscitate; Z73.0 Burn-out
CPT/HCPCS: 36415; 51702; 71045; 80048; 80053; 81000; 82010; 82784; 82805; 82947; 83036; 83605; 83735; 84100; 84145; 85007; 85025; 85027; 85379; 85610; 85730; 86141; 87040; 87077; 87081; 87088; 87186; 93005; 94660